=== PATIENT | male | born 1950 | race African-American/Black ===

== ENCOUNTER → 2017-12-25 | Outpatient (CLI) | payer MEDICARE ==
[~2017-12-25] MED LIST: ASPI-1159 PO; CARDURA; DOXA2TAB2 PO; FURO40TA5 PO; HYDR-4134 PO; INSU3INS8 SUBCUT; INSULIN; NEBI5TAB3 PO; NIFE30TA94 PO; NIFE90TA34 PO; PROCARDIA; SIMV20TA6 PO; VALS160T2 PO
== END | disposition home or self-care (01) ==
LOC: RAD 10:33
PROVIDERS: ATTEND Specialist
DX: Z01.818 Encounter for other preprocedural examination (principal); J84.9 Interstitial pulmonary disease, unspecified; I12.9 Hypertensive chronic kidney disease with stage 1 through stage 4 chronic kidney disease, or unspecified chronic kidney disease; E11.22 Type 2 diabetes mellitus with diabetic chronic kidney disease; N18.9 Chronic kidney disease, unspecified; E78.00 Pure hypercholesterolemia, unspecified; Z87.891 Personal history of nicotine dependence
CPT/HCPCS: 71045

== ENCOUNTER 2018-01-07 01:02 | Emergency (ER) | payer MEDICARE ==
[~2018-01-07] VITALS: Ht 180.3 cm; Wt 107.0 kg
[~2018-01-07 01:02] MED LIST changes: -CARDURA; -INSULIN; -NIFE30TA94 PO; -PROCARDIA
[2018-01-07 01:04] VITALS: BP 202/100
== END 2018-01-07 01:30 | disposition left against medical advice (07) ==
LOC: ER 01:02
DX: Z53.21 Procedure and treatment not carried out due to patient leaving prior to being seen by health care provider (principal); I10 Essential (primary) hypertension; E11.9 Type 2 diabetes mellitus without complications

== ENCOUNTER 2018-11-29 06:21 | Emergency (ER) | payer MEDICARE, MEDICAID, OTHER ==
[~2018-11-29] VITALS: Ht 180.3 cm; Wt 104.0 kg
[2018-11-29] MEDS ORDERED: DEXAMETHASONE 4MG TABLET PO ONE (08:15)
[2018-11-29 09:05] VITALS: BP 157/69
== END 2018-11-29 09:46 | disposition home or self-care (01) ==
LOC: ER 09:41
DX: T78.3XXA Angioneurotic edema, initial encounter (principal); X58.XXXA Exposure to other specified factors, initial encounter; E11.9 Type 2 diabetes mellitus without complications; I10 Essential (primary) hypertension; Z98.890 Other specified postprocedural states; Z79.82 Long term (current) use of aspirin; Z79.4 Long term (current) use of insulin; Z79.899 Other long term (current) drug therapy
CPT/HCPCS: 99283; J8540

== ENCOUNTER → 2020-09-19 | Outpatient (CLI) | payer MEDICARE, OTHER ==
[~2020-09-19] MED LIST changes: +AMLO10TA80 PO; -ASPI-1159 PO; +ASPI-1497 PO; +CLON0.1T PO; +CLON0.2T PO; +HYDR100T26 PO; +ISOS60TA4 PO; +LEVE500T19 PO; +LINA145C PO; +LINA72CA PO; +LOSA100T32 PO; -NIFE90TA34 PO; +NIFE90TA60 PO; +SIMV-43 PO; -SIMV20TA6 PO; -VALS160T2 PO
== END | disposition home or self-care (01) ==
LOC: LAB 12:44
PROVIDERS: ATTEND Surgery Vascular Surgery
DX: Z20.828 Contact with and (suspected) exposure to other viral communicable diseases (principal)
CPT/HCPCS: C9803; U0003

== ENCOUNTER 2020-09-22 10:01 | Day surgery (SDC) | payer MEDICARE, OTHER ==
[~2020-09-22] VITALS: Ht 180.3 cm; Wt 86.2 kg
[~2020-09-22 10:01] MED LIST changes: -HYDR-4134 PO; +SODIUM CHLORIDE 0.9% 500 ML IV NR
[2020-09-22 10:58] LABS: BASOPHILS % 1.1 % (0.0-2.0); EOSINOPHILS % 6.2 % (0.0-5.0); HEMATOCRIT. 36.4 % (42.0-52.0); LYMPHOCYTES % 28.8 % (20.0-50.0); MEAN CORPUSCULAR HEMOGLOBIN 32.1 pg (28.0-32.0); MEAN CORPUSCULAR VOLUME 97.7 fL (80.0-94.0); MEAN PLATELET VOLUME 7.9 fl (7.4-10.4); MONOCYTES % 7.9 % (2.0-8.0); PLATELET 215 x1000/uL (130-400); RED BLOOD CELL COUNT 3.73 mill/uL (4.7-6.1); RED CELL DISTRIBUTION WIDTH 16.9 % (11.6-14.6)
[2020-09-22 11:09] LABS: PARTIAL THROMBOPLASTIN TIME 29.6 sec (23.4-31.0); PROTHROMBIN TIME 10.5 sec (9.6-11.0)
[2020-09-22] MEDS ORDERED: LIDOCAINE HCL 1% 20ML VIAL (Pyxis) INJ ONE (11:19)
[2020-09-22] MEDS ORDERED: BACITRACIN 15GM TUBE TOP ONE (11:19)
[2020-09-22] MEDS ORDERED: THROMBIN (BOVINE) 5000 UNITS/VIAL TOP ONE (11:20)
[2020-09-22] MEDS ORDERED: HEPARIN SODIUM 1,000 UNIT/1ML VIAL IV ONE ×2 (11:20→15:15)
[2020-09-22] MEDS ORDERED: BUPIVACAINE HCL/PF 0.5% (5MG/ML) 10ML ONE (11:21)
[2020-09-22] MEDS ORDERED: BACITRACIN 50,000 UNITS/VIAL ONE (11:21)
[2020-09-22] MEDS ORDERED: SODIUM CHLORIDE 0.9% 1,000 ML ONE (11:21)
[2020-09-22] MEDS ORDERED: FENTANYL CITRATE/PF 50MCG/ML 2ML VIAL ONE (11:48)
[2020-09-22] MEDS ORDERED: MIDAZOLAM HCL 2 MG/2 ML VIAL ONE (11:48)
[2020-09-22] MEDS ORDERED: PROPOFOL 200MG/20ML VIAL IV ONE (11:49)
[2020-09-22] MEDS ORDERED: LIDOCAINE HCL/PF 1% 10 MG/ML 5ML VIAL ONE (11:49)
[2020-09-22] MEDS ORDERED: CLINDAMYCIN 900 MG PREMIX 50 ML IV ONE (11:55)
[2020-09-22] MEDS ORDERED: MEPERIDINE HCL/PF 25MG/ML CPJ IV PRN (13:15)
[2020-09-22] MEDS ORDERED: FENTANYL CITRATE/PF 50MCG/ML 2ML VIAL IV PRN (13:15)
== END 2020-09-22 16:30 | disposition home or self-care (01) ==
LOC: OR 10:01
PROVIDERS: ATTEND Surgery Vascular Surgery
DX: I12.0 Hypertensive chronic kidney disease with stage 5 chronic kidney disease or end stage renal disease (principal); E11.22 Type 2 diabetes mellitus with diabetic chronic kidney disease; N18.6 End stage renal disease; E78.00 Pure hypercholesterolemia, unspecified; I25.10 Atherosclerotic heart disease of native coronary artery without angina pectoris; Z79.899 Other long term (current) drug therapy; Z98.890 Other specified postprocedural states; Z88.2 Allergy status to sulfonamides; Z82.49 Family history of ischemic heart disease and other diseases of the circulatory system; Z83.3 Family history of diabetes mellitus
CPT/HCPCS: 36415; 36830; 80048; 82962; 85025; 85610; 85730; C1768; J1644; J2250; J2704; J3010; J3490; J7030; J7040

== ENCOUNTER 2020-10-04 17:04 | Inpatient (IN) | payer MEDICARE, OTHER ==
[~2020-10-04] VITALS: Ht 180.3 cm; Wt 82.6 kg
[~2020-10-04 17:04] MED LIST changes: -ASPI-1497 PO; -CLON0.2T PO; -FURO40TA5 PO; -INSU3INS8 SUBCUT; -ISOS60TA4 PO; -LINA72CA PO; -NIFE90TA60 PO; -SIMV-43 PO; -SODIUM CHLORIDE 0.9% 500 ML IV NR
[2020-10-04 18:17] LABS: BASOPHILS % 0.3 % (0.0-2.0); EOSINOPHILS % 7.5 % (0.0-5.0); HEMATOCRIT. 41.3 % (42.0-52.0); HEMOGLOBIN. 13.3 g/dL (14.0-18.0); LYMPHOCYTES % 11.6 % (20.0-50.0); MEAN CORPUSCULAR HEMOGLOBIN 31.7 pg (28.0-32.0); MEAN CORPUSCULAR VOLUME 98.3 fL (80.0-94.0); MONOCYTES % 9.1 % (2.0-8.0); NEUTROPHILS % 71.5 % (40.0-76.0); PLATELET 153 x1000/uL (130-400); RED CELL DISTRIBUTION WIDTH 15.9 % (11.6-14.6)
[2020-10-04 18:21] LABS: CHLORIDE 100 mEq/L (98-107)
[2020-10-04 18:24] LABS: PROTHROMBIN TIME 10.9 sec (9.6-11.0)
[2020-10-04 18:28] LABS: ETHANOL BLOOD < 10 mg/dL
[2020-10-04] MEDS ORDERED: DEXTROSE 50% WATER 50ML SYRINGE IV ONE (21:15)
[2020-10-04 21:35] LABS: CLARITY URINE CLEAR (CLEAR); COLOR URINE DARK YELLOW (YELLOW); KETONES URINE TRACE (NEGATIVE); LEUKOCYTE ESTERASE URINE TRACE (NEGATIVE); NITRITE URINE NEGATIVE (NEGATIVE); OCCULT BLOOD URINE TRACE (NEGATIVE); PROTEIN URINE 3+ (NEGATIVE); SPECIFIC GRAVITY URINE 1.021 (1.005-1.030); UROBILINOGEN URINE 0.2 E.U./dL (0.2-1.0)
[2020-10-04 21:54] LABS: *BARBITURATES SCREEN URINE NEGATIVE (NEGATIVE)
[2020-10-04 21:55] LABS: *AMPHETAMINES SCREEN URINE NEGATIVE (NEGATIVE); *BENZODIAZEPINES SCREEN URINE NEGATIVE (NEGATIVE); *COCAINE SCREEN URINE PRESUMTIVE POSITIVE (NEGATIVE); CANNABINOID URINE SCREEN NEGATIVE (NEGATIVE); METHADONE URINE SCREEN NEGATIVE (NEGATIVE); OPIATES URINE SCREEN PRESUMTIVE POSITIVE (NEGATIVE); PHENCYCLIDINE URINE SCREEN NEGATIVE (NEGATIVE)
[2020-10-04 23:30] VITALS: BP 162/71
[2020-10-05] MEDS ORDERED: CLONIDINE 0.1MG TABLET PO PRN (00:45)
[2020-10-05] MEDS ORDERED: ACETAMINOPHEN 325MG TABLET PO PRN (00:45)
[2020-10-05] MEDS ORDERED: MAGNESIUM/ALUMINUM HYDROXIDE/SIMETHICONE 30ML UDC PO PRN (00:45)
[2020-10-05] MEDS ORDERED: DIPHENHYDRAMINE 50MG/ML VIAL IV PRN (00:45)
[2020-10-05] MEDS ORDERED: GUAIFENESIN 200MG/10ML SUGAR FREE UDC PO PRN (00:45)
[2020-10-05] MEDS ORDERED: ONDANSETRON HCL 4MG/2ML INJ IV PRN (00:45)
[2020-10-05] MEDS ORDERED: DOCUSATE SODIUM 100MG CAPSULE PO PRN (00:45)
[2020-10-05] MEDS ORDERED: AMLODIPINE 10MG TABLET PO SCH (01:00)
[2020-10-05] MEDS ORDERED: LEVOFLOXACIN 500MG PREMIX 100 ML IV NR (02:00)
[2020-10-05 04:00] VITALS: BP 149/79
[2020-10-05] MEDS ORDERED: DEXTROSE 50% WATER 50ML SYRINGE IV PRN ×2 (06:15)
[2020-10-05] MEDS: BLOOD SUGAR DIAGNOSTIC STRIP TEST SCH ×4 (06:42→21:12)
[2020-10-05] MEDS: INSULIN LISPRO 100 UNITS/ML SUBCUT SCH ×4 (07:12→21:12)
[2020-10-05 07:48] VITALS: BP 127/58
[2020-10-05] MEDS: AMLODIPINE 10MG TABLET PO SCH (09:24)
[2020-10-05] MEDS: ENOXAPARIN 30MG/0.3ML SYR SUBCUT SCH (09:26)
[2020-10-05] MEDS ORDERED: ACETAMINOPHEN 325MG TABLET PO NR (10:30)
[2020-10-05] MEDS: LEVETIRACETAM 500MG TABLET PO SCH (11:45)
[2020-10-05] MEDS: DOXAZOSIN MESYLATE 2MG TABLET PO SCH (11:46)
[2020-10-05] MEDS: LOSARTAN POTASSIUM 100 MG TABLET PO SCH (11:46)
[2020-10-05 12:00] VITALS: BP 171/76
[2020-10-05 12:57] VITALS: BP 137/87
[2020-10-05] MEDS: HYDRALAZINE HCL 100MG TABLET PO SCH ×2 (15:11→21:10)
[2020-10-05 16:00] VITALS: BP 121/58
[2020-10-05 20:00] VITALS: BP 130/64
[2020-10-06] VITALS (7 sets, daily range): BP systolic 101–134; BP diastolic 54–67
[2020-10-06] MEDS: BLOOD SUGAR DIAGNOSTIC STRIP TEST SCH ×3 (06:29→17:51)
[2020-10-06] MEDS: INSULIN LISPRO 100 UNITS/ML SUBCUT SCH ×3 (06:29→17:54)
[2020-10-06 06:35] LABS: BASOPHILS % 0.7 % (0.0-2.0); EOSINOPHILS % 8.6 % (0.0-5.0); HEMATOCRIT. 38.2 % (42.0-52.0); HEMOGLOBIN. 12.6 g/dL (14.0-18.0); LYMPHOCYTES % 19.8 % (20.0-50.0); MEAN CORPUSCULAR HEMOGLOBIN 32.2 pg (28.0-32.0); MEAN CORPUSCULAR VOLUME 97.2 fL (80.0-94.0); MEAN PLATELET VOLUME 9.4 fl (7.4-10.4); MONOCYTES % 10.5 % (2.0-8.0); NEUTROPHILS % 60.4 % (40.0-76.0); PLATELET 137 x1000/uL (130-400); RED BLOOD CELL COUNT 3.93 mill/uL (4.7-6.1)
[2020-10-06 06:45] LABS: CHLORIDE 102 mEq/L (98-107)
[2020-10-06] MEDS: DOXAZOSIN MESYLATE 2MG TABLET PO SCH (08:20)
[2020-10-06] MEDS: LEVETIRACETAM 500MG TABLET PO SCH (08:20)
[2020-10-06] MEDS: HYDRALAZINE HCL 100MG TABLET PO SCH ×3 (08:22→17:51)
[2020-10-06] MEDS: LOSARTAN POTASSIUM 100 MG TABLET PO SCH (08:22)
[2020-10-06] MEDS: ENOXAPARIN 30MG/0.3ML SYR SUBCUT SCH (08:22)
[2020-10-06] MEDS: AMLODIPINE 10MG TABLET PO SCH (08:23)
[2020-10-07] MEDS ORDERED: LEVOFLOXACIN 250MG PREMIX 50 ML IV SCH (09:00)
== END 2020-10-06 19:50 | DRG 70 ==
LOC: ER 17:04 → 8WST 21:16 → EDBEDREQ 21:18 → EDBEDREQTM 21:18 → EDBEDREQSVC 21:18 → ENRESERV 21:44
PROVIDERS: ADMIT Hospitalist; ATTEND Hospitalist
PROC: 5A1D70Z Performance of Urinary Filtration, Intermittent, Less than 6 Hours Per Day (ICD-10-PCS; principal; 2020-10-04)
DX: G93.41 Metabolic encephalopathy (principal); I50.33 Acute on chronic diastolic (congestive) heart failure; N18.6 End stage renal disease; I13.2 Hypertensive heart and chronic kidney disease with heart failure and with stage 5 chronic kidney disease, or end stage renal disease; E11.649 Type 2 diabetes mellitus with hypoglycemia without coma; E11.22 Type 2 diabetes mellitus with diabetic chronic kidney disease; F19.10 Other psychoactive substance abuse, uncomplicated; F17.210 Nicotine dependence, cigarettes, uncomplicated; Z88.0 Allergy status to penicillin; Z79.899 Other long term (current) drug therapy; Z99.2 Dependence on renal dialysis
CPT/HCPCS: 36415; 71045; 80053; 80305; 80320; 81003; 82962; 83036; 84484; 85025; 93005; 93970; 96374; 97116; 97162; 97166; 97535; 99285; J1650; J1815; J1956; G0480

== ENCOUNTER 2020-10-16 13:39 | Inpatient (IN) | payer MEDICARE, OTHER ==
[~2020-10-16] VITALS: Ht 182.9 cm; Wt 94.3 kg
[2020-10-16] MEDS ORDERED: SODIUM CHLORIDE 0.9% 1000ML BAG (SEPSIS BOLUS) IV ONE (14:45)
[2020-10-16 15:18] LABS: BG BASE EXCESS -0.5 mmol/L (-2.0-2.0); BG CARBOXYHEMOGLOBIN 0.5 % (0.5-1.5); BG DEOXYHEMOGLOBIN 8.9 % (0.0-5.0); BG FRACTION INSPIRED OXYGEN 28; BG HCO3 ACT 24.9 mmol/L (22.0-26.0); BG METHEMOGLOBIN 0.3 % (0.0-1.5); BG OXYHEMOGLOBIN 90.3 % (94.0-97.0); BG PCO2 43.6 mmHg (35.0-45.0); BG PH 7.374 (7.350-7.450); BG PO2 66.6 mmHg (75.0-100.0); BG SAMPLE SITE RIGHT BRACHIAL; BG TOTAL HEMOGLOBIN 12.4 g/dL (12.0-18.0); BG VENT MODE NASAL CANNULA
[2020-10-16 15:41] LABS: BASOPHILS % 0.4 % (0.0-2.0); EOSINOPHILS % 0.5 % (0.0-5.0); HEMATOCRIT. 37.9 % (42.0-52.0); HEMOGLOBIN. 12.4 g/dL (14.0-18.0); LYMPHOCYTES % 10.4 % (20.0-50.0); MEAN CORPUSCULAR HEMOGLOBIN 31.4 pg (28.0-32.0); MEAN CORPUSCULAR VOLUME 96.1 fL (80.0-94.0); MONOCYTES % 8.7 % (2.0-8.0); PLATELET 141 x1000/uL (130-400); RED BLOOD CELL COUNT 3.95 mill/uL (4.7-6.1); RED CELL DISTRIBUTION WIDTH 15.8 % (11.6-14.6)
[2020-10-16 15:44] LABS: CHLORIDE 95 mEq/L (98-107)
[2020-10-16 15:48] LABS: ETHANOL BLOOD < 10 mg/dL
[2020-10-16 16:02] LABS: INR 1.1; PROTHROMBIN TIME 11.2 sec (9.6-11.0)
[2020-10-16] MEDS ORDERED: SODIUM POLYSTYRENE SULFONATE 15 G/60 ML BOT PO NR (17:45)
[2020-10-16] MEDS ORDERED: INSULIN REGULAR (HUMULIN R) 300UNITS/3ML VIAL IV ONE (17:45)
[2020-10-16] MEDS ORDERED: DEXTROSE 50% WATER 50ML SYRINGE IV ONE (17:45)
[2020-10-16] MEDS ORDERED: CALCIUM GLUCONATE 100MG/ML 10ML VIAL IV NR (17:45)
[2020-10-16] MEDS ORDERED: DEXTROSE 50% WATER 50ML SYRINGE IV NR (21:00)
[2020-10-16 22:00] VITALS: BP 153/75
[2020-10-16] MEDS ORDERED: ATOR40TA70 PO (23:27)
[2020-10-16] MEDS ORDERED: TRAZ-251 PO (23:27)
[2020-10-16] MEDS ORDERED: CLONIDINE 0.1MG TABLET PO PRN (23:45)
[2020-10-17] VITALS: BP 153/78
[2020-10-17] MEDS: ACETAMINOPHEN 325MG TABLET PO PRN ×3 (00:28→21:41)
[2020-10-17] MEDS ORDERED: LEVOFLOXACIN 500MG PREMIX 100 ML IV NR (01:00)
[2020-10-17] MEDS ORDERED: VANCOMYCIN 1500MG in DEXTROSE 5% WATER 250ML IV SCH (02:00)
[2020-10-17] MEDS: TRAZODONE HCL 50MG TABLET PO SCH ×2 (02:28→21:41)
[2020-10-17 04:00] VITALS: BP 140/65
[2020-10-17] MEDS: DEXTROSE 50% WATER 50ML SYRINGE IV PRN (05:32)
[2020-10-17 05:53] LABS: BASOPHILS % 0.4 % (0.0-2.0); HEMATOCRIT. 36.4 % (42.0-52.0); MEAN CORPUSCULAR HEMOGLOBIN 31.8 pg (28.0-32.0); MEAN CORPUSCULAR VOLUME 96.9 fL (80.0-94.0); MEAN PLATELET VOLUME 9.1 fl (7.4-10.4); MONOCYTES % 8.5 % (2.0-8.0); NEUTROPHILS % 78.1 % (40.0-76.0); PLATELET 144 x1000/uL (130-400); RED BLOOD CELL COUNT 3.76 mill/uL (4.7-6.1); RED CELL DISTRIBUTION WIDTH 15.5 % (11.6-14.6)
[2020-10-17] MEDS: INSULIN LISPRO 100 UNITS/ML SUBCUT SCH ×4 (06:29→21:00)
[2020-10-17] MEDS: BLOOD SUGAR DIAGNOSTIC STRIP TEST SCH ×4 (06:29→21:36)
[2020-10-17 08:00] VITALS: BP 142/71
[2020-10-17 08:59] LABS: PHOSPHORUS 8.8 mg/dL (2.5-4.9)
[2020-10-17] MEDS ORDERED: PIPERACILLIN/TAZOBACTAM 3.375 G in DEXT 5% WATER 100 ML IV SCH (09:00)
[2020-10-17] MEDS ORDERED: DEXT 10% WATER 1,000 ML IV SCH (09:00)
[2020-10-17] MEDS: LEVETIRACETAM 500MG TABLET PO SCH ×2 (10:26→16:45)
[2020-10-17] MEDS: DEXT 10% WATER 1,000 ML IV SCH (11:16)
[2020-10-17 12:00] VITALS: BP 144/72
[2020-10-17] MEDS: ENOXAPARIN 30MG/0.3ML SYR SUBCUT SCH (15:13)
[2020-10-17] MEDS: AMLODIPINE 10MG TABLET PO SCH (15:49)
[2020-10-17] MEDS: HYDRALAZINE HCL 100MG TABLET PO SCH ×2 (15:50→16:29)
[2020-10-17] MEDS: DOXAZOSIN MESYLATE 2MG TABLET PO SCH (15:50)
[2020-10-17] MEDS: SEVELAMER CARBONATE 800 MG TABLET PO SCH (16:44)
[2020-10-17] MEDS ORDERED: ALBUTEROL 6.7GM HFA INHALER ORI PRN (18:00)
[2020-10-17 20:00] VITALS: BP 147/63
[2020-10-17] MEDS ORDERED: VANCOMYCIN 750 MG PREMIX 150 ML IV NR (20:00)
[2020-10-17] MEDS: ATORVASTATIN CALCIUM 40MG TABLET PO SCH (21:41)
[2020-10-17 21:44] LABS: T4 FREE 1.12 ng/dL (0.76-1.46)
[2020-10-17 22:07] LABS: FOLIC ACID (FOLATE) SERUM 9.1 ng/mL (>5.38)
[2020-10-18] VITALS: BP 100/61
[2020-10-18] MEDS: ACETAMINOPHEN 325MG TABLET PO PRN (03:44)
[2020-10-18 04:00] VITALS: BP 129/54
[2020-10-18] MEDS: BLOOD SUGAR DIAGNOSTIC STRIP TEST SCH ×4 (06:40→20:43)
[2020-10-18 08:00] VITALS: BP 117/59
[2020-10-18] MEDS: INSULIN LISPRO 100 UNITS/ML SUBCUT SCH ×4 (08:10→21:32)
[2020-10-18] MEDS: LEVETIRACETAM 500MG TABLET PO SCH ×2 (09:01→18:55)
[2020-10-18] MEDS: AMLODIPINE 10MG TABLET PO SCH (09:01)
[2020-10-18] MEDS: DOXAZOSIN MESYLATE 2MG TABLET PO SCH (09:01)
[2020-10-18] MEDS: HYDRALAZINE HCL 100MG TABLET PO SCH ×3 (09:02→18:55)
[2020-10-18] MEDS: SEVELAMER CARBONATE 800 MG TABLET PO SCH ×3 (09:02→18:55)
[2020-10-18] MEDS: ENOXAPARIN 30MG/0.3ML SYR SUBCUT SCH (09:03)
[2020-10-18 12:00] VITALS: BP 100/64
[2020-10-18 15:22] LABS: CLARITY URINE CLEAR (CLEAR); COLOR URINE YELLOW (YELLOW); KETONES URINE NEGATIVE (NEGATIVE); LEUKOCYTE ESTERASE URINE NEGATIVE (NEGATIVE); NITRITE URINE NEGATIVE (NEGATIVE); OCCULT BLOOD URINE NEGATIVE (NEGATIVE); PH URINE >=9.0 (4.5-8.0); PROTEIN URINE NEGATIVE (NEGATIVE); SPECIFIC GRAVITY URINE 1.007 (1.005-1.030); UROBILINOGEN URINE 0.2 E.U./dL (0.2-1.0)
[2020-10-18 16:00] VITALS: BP 136/67
[2020-10-18] MEDS: DEXT 10% WATER 1,000 ML IV SCH (16:06)
[2020-10-18 20:00] VITALS: BP 122/70
[2020-10-18] MEDS: ATORVASTATIN CALCIUM 40MG TABLET PO SCH (21:31)
[2020-10-18] MEDS: TRAZODONE HCL 50MG TABLET PO SCH (21:31)
[2020-10-19] VITALS: BP 114/58
[2020-10-19] MEDS: DEXAMETHASONE 10 MG/ML VIAL IV SCH ×2 (00:33→08:01)
[2020-10-19] MEDS: ACETAMINOPHEN 325MG TABLET PO PRN ×3 (00:52→22:33)
[2020-10-19 04:00] VITALS: BP 133/62
[2020-10-19] MEDS: BLOOD SUGAR DIAGNOSTIC STRIP TEST SCH ×4 (06:42→21:28)
[2020-10-19] MEDS: INSULIN LISPRO 100 UNITS/ML SUBCUT SCH ×4 (07:55→21:00)
[2020-10-19] MEDS: SEVELAMER CARBONATE 800 MG TABLET PO SCH ×3 (07:56→18:36)
[2020-10-19 08:00] VITALS: BP 119/67
[2020-10-19] MEDS: ENOXAPARIN 30MG/0.3ML SYR SUBCUT SCH (08:01)
[2020-10-19] MEDS: LEVETIRACETAM 500MG TABLET PO SCH ×2 (08:01→18:35)
[2020-10-19] MEDS: DOXAZOSIN MESYLATE 2MG TABLET PO SCH (08:01)
[2020-10-19] MEDS: HYDRALAZINE HCL 100MG TABLET PO SCH ×3 (08:02→18:35)
[2020-10-19 12:00] VITALS: BP 116/64
[2020-10-19] MEDS: LEVOFLOXACIN 250MG PREMIX 50 ML IV SCH (13:03)
[2020-10-19 13:38] LABS: HEMATOCRIT. 33.3 % (42.0-52.0); MEAN CORPUSCULAR HEMOGLOBIN 31.5 pg (28.0-32.0); MEAN CORPUSCULAR VOLUME 95.2 fL (80.0-94.0); MEAN PLATELET VOLUME 8.9 fl (7.4-10.4); PLATELET 130 x1000/uL (130-400); RED CELL DISTRIBUTION WIDTH 15.8 % (11.6-14.6)
[2020-10-19 14:07] LABS: PLATELET ESTIMATE NORMAL
[2020-10-19 16:00] VITALS: BP 104/52
[2020-10-19 20:00] VITALS: BP 112/57
[2020-10-19] MEDS ORDERED: VANCOMYCIN 750 MG PREMIX 150 ML IV SCH (20:00)
[2020-10-19] MEDS ORDERED: LEVOFLOXACIN 250MG PREMIX 50 ML IV SCH (21:00)
[2020-10-19] MEDS: DEXTROSE 50% WATER 50ML SYRINGE IV PRN (21:28)
[2020-10-19] MEDS: ATORVASTATIN CALCIUM 40MG TABLET PO SCH (22:33)
[2020-10-19] MEDS: TRAZODONE HCL 50MG TABLET PO SCH (22:33)
[2020-10-20] VITALS: BP 118/87
[2020-10-20 04:00] VITALS: BP 130/66
[2020-10-20 05:58] LABS: HEMATOCRIT. 37.4 % (42.0-52.0); HEMOGLOBIN. 12.4 g/dL (14.0-18.0); MEAN CORPUSCULAR HEMOGLOBIN 31.7 pg (28.0-32.0); MEAN CORPUSCULAR VOLUME 95.7 fL (80.0-94.0); MEAN PLATELET VOLUME 9.8 fl (7.4-10.4); PLATELET 146 x1000/uL (130-400); RED CELL DISTRIBUTION WIDTH 15.8 % (11.6-14.6)
[2020-10-20] MEDS: BLOOD SUGAR DIAGNOSTIC STRIP TEST SCH ×4 (06:45→21:31)
[2020-10-20 08:00] VITALS: BP 103/64
[2020-10-20] MEDS: INSULIN LISPRO 100 UNITS/ML SUBCUT SCH ×4 (08:10→21:00)
[2020-10-20] MEDS: SEVELAMER CARBONATE 800 MG TABLET PO SCH ×3 (08:10→16:48)
[2020-10-20] MEDS: DOXAZOSIN MESYLATE 2MG TABLET PO SCH (09:00)
[2020-10-20] MEDS: HYDRALAZINE HCL 100MG TABLET PO SCH ×3 (09:00→16:48)
[2020-10-20] MEDS: ENOXAPARIN 30MG/0.3ML SYR SUBCUT SCH (09:16)
[2020-10-20] MEDS: DEXAMETHASONE 10 MG/ML VIAL IV SCH (09:17)
[2020-10-20] MEDS: LEVETIRACETAM 500MG TABLET PO SCH ×2 (09:17→16:48)
[2020-10-20] MEDS: ACETAMINOPHEN 325MG TABLET PO PRN ×2 (09:21→15:47)
[2020-10-20 12:00] VITALS: BP 116/61
[2020-10-20 12:36] LABS: PLATELET ESTIMATE NORMAL
[2020-10-20 16:00] VITALS: BP 118/70
[2020-10-20 20:00] VITALS: BP 171/72
[2020-10-20] MEDS: TRAZODONE HCL 50MG TABLET PO SCH (21:32)
[2020-10-20] MEDS: ATORVASTATIN CALCIUM 40MG TABLET PO SCH (21:32)
[2020-10-21] VITALS (12 sets, daily range): BP systolic 105–135; BP diastolic 55–94
[2020-10-21] MEDS: ACETAMINOPHEN 325MG TABLET PO PRN ×2 (02:02→16:40)
[2020-10-21 06:30] LABS: HEMATOCRIT. 37.6 % (42.0-52.0); HEMOGLOBIN. 12.4 g/dL (14.0-18.0); MEAN CORPUSCULAR HEMOGLOBIN 31.6 pg (28.0-32.0); MEAN CORPUSCULAR VOLUME 95.7 fL (80.0-94.0); MEAN PLATELET VOLUME 9.9 fl (7.4-10.4); PLATELET 139 x1000/uL (130-400); RED BLOOD CELL COUNT 3.93 mill/uL (4.7-6.1); RED CELL DISTRIBUTION WIDTH 15.9 % (11.6-14.6)
[2020-10-21] MEDS: BLOOD SUGAR DIAGNOSTIC STRIP TEST SCH ×4 (06:38→20:33)
[2020-10-21] MEDS: INSULIN LISPRO 100 UNITS/ML SUBCUT SCH ×4 (08:03→20:53)
[2020-10-21] MEDS: ENOXAPARIN 30MG/0.3ML SYR SUBCUT SCH (08:28)
[2020-10-21] MEDS: SEVELAMER CARBONATE 800 MG TABLET PO SCH ×3 (08:28→19:14)
[2020-10-21] MEDS: DEXAMETHASONE 10 MG/ML VIAL IV SCH (08:29)
[2020-10-21] MEDS: LEVETIRACETAM 500MG TABLET PO SCH ×2 (08:29→17:17)
[2020-10-21] MEDS: DOXAZOSIN MESYLATE 2MG TABLET PO SCH (09:00)
[2020-10-21] MEDS: HYDRALAZINE HCL 100MG TABLET PO SCH ×3 (09:00→17:00)
[2020-10-21 12:50] LABS: PLATELET ESTIMATE NORMAL
[2020-10-21] MEDS ORDERED: TUBERCULIN,PURIF.PROT.DERIV. 5 TU/0.1 ML SYR ID ONE (16:00)
[2020-10-21] MEDS: LEVOFLOXACIN 250MG PREMIX 50 ML IV SCH (16:40)
[2020-10-21] MEDS: DEXTROSE 50% WATER 50ML SYRINGE IV PRN (17:29)
[2020-10-21] MEDS: TRAZODONE HCL 50MG TABLET PO SCH (20:33)
[2020-10-21] MEDS: ATORVASTATIN CALCIUM 40MG TABLET PO SCH (20:33)
[2020-10-22] VITALS: BP 133/64
[2020-10-22 04:00] VITALS: BP 113/56
[2020-10-22] MEDS: BLOOD SUGAR DIAGNOSTIC STRIP TEST SCH ×4 (07:01→21:00)
[2020-10-22 08:00] VITALS: BP 96/45
[2020-10-22] MEDS: INSULIN LISPRO 100 UNITS/ML SUBCUT SCH ×4 (08:10→22:35)
[2020-10-22] MEDS: HYDRALAZINE HCL 100MG TABLET PO SCH ×3 (09:00→17:33)
[2020-10-22] MEDS: DOXAZOSIN MESYLATE 2MG TABLET PO SCH (09:00)
[2020-10-22] MEDS: ENOXAPARIN 30MG/0.3ML SYR SUBCUT SCH (10:14)
[2020-10-22] MEDS: LEVETIRACETAM 500MG TABLET PO SCH ×2 (10:15→17:32)
[2020-10-22] MEDS: SEVELAMER CARBONATE 800 MG TABLET PO SCH ×3 (10:15→17:32)
[2020-10-22] MEDS: DEXAMETHASONE 10 MG/ML VIAL IV SCH (10:15)
[2020-10-22 12:00] VITALS: BP 109/54
[2020-10-22 12:59] LABS: HEPATITIS B SURFACE ANTIGEN NEGATIVE
[2020-10-22 13:29] LABS: HEPATITIS A AB IGM NEGATIVE (NEGATIVE)
[2020-10-22 16:00] VITALS: BP 118/69
[2020-10-22 20:00] VITALS: BP 109/67
[2020-10-22] MEDS: ATORVASTATIN CALCIUM 40MG TABLET PO SCH (22:16)
[2020-10-22] MEDS: TRAZODONE HCL 50MG TABLET PO SCH (22:16)
[2020-10-23] VITALS: BP 118/61
[2020-10-23 04:00] VITALS: BP 110/60
[2020-10-23 08:00] VITALS: BP 124/63
[2020-10-23] MEDS: BLOOD SUGAR DIAGNOSTIC STRIP TEST SCH ×4 (08:05→21:36)
[2020-10-23] MEDS: SEVELAMER CARBONATE 800 MG TABLET PO SCH ×3 (08:42→17:10)
[2020-10-23] MEDS: FOLIC ACID/VITAMIN B COMP W-C TABLET PO SCH (08:42)
[2020-10-23] MEDS: DOXAZOSIN MESYLATE 2MG TABLET PO SCH (08:42)
[2020-10-23] MEDS: HYDRALAZINE HCL 100MG TABLET PO SCH ×3 (08:42→16:57)
[2020-10-23] MEDS: LEVETIRACETAM 500MG TABLET PO SCH ×2 (08:42→17:10)
[2020-10-23] MEDS: DEXAMETHASONE 10 MG/ML VIAL IV SCH (08:43)
[2020-10-23] MEDS: ENOXAPARIN 30MG/0.3ML SYR SUBCUT SCH (08:43)
[2020-10-23] MEDS: INSULIN LISPRO 100 UNITS/ML SUBCUT SCH ×4 (08:56→21:00)
[2020-10-23 12:00] VITALS: BP 118/60
[2020-10-23 16:00] VITALS: BP 102/55
[2020-10-23 20:00] VITALS: BP 158/64
[2020-10-23] MEDS: ATORVASTATIN CALCIUM 40MG TABLET PO SCH (21:37)
[2020-10-23] MEDS: TRAZODONE HCL 50MG TABLET PO SCH (21:37)
[2020-10-24] VITALS: BP 125/68
[2020-10-24 04:00] VITALS: BP 106/52
[2020-10-24] MEDS: ACETAMINOPHEN 325MG TABLET PO PRN ×2 (06:08→08:44)
[2020-10-24] MEDS: BLOOD SUGAR DIAGNOSTIC STRIP TEST SCH ×4 (07:45→20:51)
[2020-10-24] MEDS: INSULIN LISPRO 100 UNITS/ML SUBCUT SCH ×4 (08:10→21:00)
[2020-10-24 08:19] LABS: HEMOGLOBIN. 11.5 g/dL (14.0-18.0); MEAN CORPUSCULAR HEMOGLOBIN 31.5 pg (28.0-32.0); MEAN PLATELET VOLUME 10.5 fl (7.4-10.4); PLATELET 134 x1000/uL (130-400); RED BLOOD CELL COUNT 3.66 mill/uL (4.7-6.1); RED CELL DISTRIBUTION WIDTH 15.4 % (11.6-14.6)
[2020-10-24] MEDS: FOLIC ACID/VITAMIN B COMP W-C TABLET PO SCH (08:42)
[2020-10-24] MEDS: SEVELAMER CARBONATE 800 MG TABLET PO SCH ×3 (08:43→17:29)
[2020-10-24] MEDS: LEVETIRACETAM 500MG TABLET PO SCH ×2 (08:44→17:29)
[2020-10-24] MEDS: DEXAMETHASONE 10 MG/ML VIAL IV SCH (08:45)
[2020-10-24] MEDS: HYDRALAZINE HCL 100MG TABLET PO SCH ×4 (08:45→17:29)
[2020-10-24] MEDS: DOXAZOSIN MESYLATE 2MG TABLET PO SCH ×2 (08:46→08:49)
[2020-10-24] MEDS: ENOXAPARIN 30MG/0.3ML SYR SUBCUT SCH (08:47)
[2020-10-24 12:00] VITALS: BP 101/59
[2020-10-24 13:54] LABS: PLATELET ESTIMATE NORMAL
[2020-10-24 16:00] VITALS: BP 120/74
[2020-10-24 20:00] VITALS: BP 141/79
[2020-10-24] MEDS: TRAZODONE HCL 50MG TABLET PO SCH (20:59)
[2020-10-24] MEDS: ATORVASTATIN CALCIUM 40MG TABLET PO SCH (20:59)
[2020-10-25] VITALS: BP 133/72
[2020-10-25 04:00] VITALS: BP 139/67
[2020-10-25] MEDS: ACETAMINOPHEN 325MG TABLET PO PRN ×2 (05:13→17:11)
[2020-10-25] MEDS: BLOOD SUGAR DIAGNOSTIC STRIP TEST SCH ×4 (06:45→21:00)
[2020-10-25] MEDS: INSULIN LISPRO 100 UNITS/ML SUBCUT SCH ×4 (06:46→21:00)
[2020-10-25 08:00] VITALS: BP 137/97
[2020-10-25] MEDS: DEXAMETHASONE 10 MG/ML VIAL IV SCH (09:03)
[2020-10-25] MEDS: FOLIC ACID/VITAMIN B COMP W-C TABLET PO SCH (09:04)
[2020-10-25] MEDS: HYDRALAZINE HCL 100MG TABLET PO SCH ×3 (09:04→17:10)
[2020-10-25] MEDS: ENOXAPARIN 30MG/0.3ML SYR SUBCUT SCH (09:05)
[2020-10-25] MEDS: DOXAZOSIN MESYLATE 2MG TABLET PO SCH (09:05)
[2020-10-25] MEDS: SEVELAMER CARBONATE 800 MG TABLET PO SCH ×3 (09:05→17:10)
[2020-10-25] MEDS: LEVETIRACETAM 500MG TABLET PO SCH ×2 (09:05→17:10)
[2020-10-25 12:00] VITALS: BP 113/53
[2020-10-25 12:34] LABS: HEMATOCRIT. 35.3 % (42.0-52.0); HEMOGLOBIN. 11.8 g/dL (14.0-18.0); MEAN CORPUSCULAR HEMOGLOBIN 31.5 pg (28.0-32.0); MEAN CORPUSCULAR VOLUME 94.3 fL (80.0-94.0); MEAN PLATELET VOLUME 10.9 fl (7.4-10.4); PLATELET 146 x1000/uL (130-400); RED BLOOD CELL COUNT 3.75 mill/uL (4.7-6.1); RED CELL DISTRIBUTION WIDTH 15.6 % (11.6-14.6)
[2020-10-25 16:00] VITALS: BP 122/66
[2020-10-25 20:00] VITALS: BP 117/64
[2020-10-25] MEDS: ATORVASTATIN CALCIUM 40MG TABLET PO SCH (22:19)
[2020-10-25] MEDS: TRAZODONE HCL 50MG TABLET PO SCH (22:19)
[2020-10-25 22:56] LABS: PLATELET ESTIMATE NORMAL
[2020-10-26] VITALS: BP 123/74
[2020-10-26 04:00] VITALS: BP 121/62
[2020-10-26 07:42] LABS: HEMATOCRIT. 34.5 % (42.0-52.0); HEMOGLOBIN. 11.5 g/dL (14.0-18.0); MEAN CORPUSCULAR HEMOGLOBIN 31.6 pg (28.0-32.0); MEAN CORPUSCULAR VOLUME 94.8 fL (80.0-94.0); MEAN PLATELET VOLUME 10.7 fl (7.4-10.4); PLATELET 155 x1000/uL (130-400); RED BLOOD CELL COUNT 3.64 mill/uL (4.7-6.1); RED CELL DISTRIBUTION WIDTH 15.8 % (11.6-14.6)
[2020-10-26 08:00] VITALS: BP 117/66
[2020-10-26] MEDS: BLOOD SUGAR DIAGNOSTIC STRIP TEST SCH ×4 (08:29→21:09)
[2020-10-26] MEDS ORDERED: SODIUM BICARBONATE 8.4% 1 MEQ/ML 50ML SYR IV NR (09:00)
[2020-10-26] MEDS ORDERED: DEXTROSE 50% WATER 50ML SYRINGE IV NR (09:00)
[2020-10-26] MEDS ORDERED: SODIUM POLYSTYRENE SULFONATE 15 G/60 ML BOT PO NR (09:30)
[2020-10-26] MEDS ORDERED: INSULIN REGULAR (HUMULIN R) UD 100 UNITS/ML SYR IV NR (10:00)
[2020-10-26] MEDS: SEVELAMER CARBONATE 800 MG TABLET PO SCH ×2 (10:17→17:33)
[2020-10-26] MEDS: INSULIN LISPRO 100 UNITS/ML SUBCUT SCH ×4 (10:19→21:28)
[2020-10-26] MEDS: DEXAMETHASONE 10 MG/ML VIAL IV SCH (10:22)
[2020-10-26] MEDS: HYDRALAZINE HCL 100MG TABLET PO SCH ×3 (10:24→17:00)
[2020-10-26] MEDS: DOXAZOSIN MESYLATE 2MG TABLET PO SCH (10:24)
[2020-10-26] MEDS: ENOXAPARIN 30MG/0.3ML SYR SUBCUT SCH (10:25)
[2020-10-26] MEDS: LEVETIRACETAM 500MG TABLET PO SCH ×2 (10:25→17:33)
[2020-10-26] MEDS: FOLIC ACID/VITAMIN B COMP W-C TABLET PO SCH (10:25)
[2020-10-26 12:00] VITALS: BP 143/71
[2020-10-26 13:06] LABS: BARBITURATE SCREEN Negative ug/mL (Cutoff:0.1); BENZODIAZEPINE SCREEN Negative ng/mL (Cutoff:20); OPIATES SCREEN ++POSITIVE++ ng/mL (Cutoff:5); PHENCYCLIDINE SCREEN Negative ng/mL (Cutoff:8)
[2020-10-26 16:00] VITALS: BP 95/56
[2020-10-26 20:00] VITALS: BP 139/76
[2020-10-26 20:58] LABS: PLATELET ESTIMATE NORMAL
[2020-10-26] MEDS: TRAZODONE HCL 50MG TABLET PO SCH (21:27)
[2020-10-26] MEDS: ATORVASTATIN CALCIUM 40MG TABLET PO SCH (21:27)
[2020-10-27 00:18] VITALS: BP 120/66
[2020-10-27 04:00] VITALS: BP 154/76
[2020-10-27 07:29] LABS: HEMATOCRIT. 35.6 % (42.0-52.0); HEMOGLOBIN. 11.9 g/dL (14.0-18.0); MEAN CORPUSCULAR HEMOGLOBIN 31.4 pg (28.0-32.0); MEAN CORPUSCULAR VOLUME 93.5 fL (80.0-94.0); MEAN PLATELET VOLUME 10.9 fl (7.4-10.4); PLATELET 169 x1000/uL (130-400); RED BLOOD CELL COUNT 3.81 mill/uL (4.7-6.1); RED CELL DISTRIBUTION WIDTH 15.2 % (11.6-14.6)
[2020-10-27] MEDS: BLOOD SUGAR DIAGNOSTIC STRIP TEST SCH ×4 (07:40→21:27)
[2020-10-27 08:00] VITALS: BP 133/68
[2020-10-27] MEDS: INSULIN LISPRO 100 UNITS/ML SUBCUT SCH ×4 (08:10→21:00)
[2020-10-27] MEDS: SEVELAMER CARBONATE 800 MG TABLET PO SCH ×3 (09:19→17:58)
[2020-10-27] MEDS: LEVETIRACETAM 500MG TABLET PO SCH ×2 (09:19→17:58)
[2020-10-27] MEDS: FOLIC ACID/VITAMIN B COMP W-C TABLET PO SCH (09:19)
[2020-10-27] MEDS: HYDRALAZINE HCL 100MG TABLET PO SCH ×3 (09:20→17:58)
[2020-10-27] MEDS: DOXAZOSIN MESYLATE 2MG TABLET PO SCH (09:20)
[2020-10-27] MEDS: DEXAMETHASONE 10 MG/ML VIAL IV SCH (09:20)
[2020-10-27] MEDS: ENOXAPARIN 30MG/0.3ML SYR SUBCUT SCH (09:20)
[2020-10-27 11:13] LABS: PLATELET ESTIMATE NORMAL
[2020-10-27 12:00] VITALS: BP 104/60
[2020-10-27 16:00] VITALS: BP_SYST 133; BP_SYST 150; BP_DIAS 46; BP_DIAS 68
[2020-10-27 20:00] VITALS: BP 135/66
[2020-10-27] MEDS: ATORVASTATIN CALCIUM 40MG TABLET PO SCH (21:31)
[2020-10-27] MEDS: TRAZODONE HCL 50MG TABLET PO SCH (21:31)
[2020-10-28 00:38] VITALS: BP 133/68
[2020-10-28 04:00] VITALS: BP 129/67
[2020-10-28] MEDS: ACETAMINOPHEN 325MG TABLET PO PRN (05:24)
[2020-10-28] MEDS: BLOOD SUGAR DIAGNOSTIC STRIP TEST SCH ×4 (05:54→21:15)
[2020-10-28] MEDS: INSULIN LISPRO 100 UNITS/ML SUBCUT SCH ×4 (05:57→21:20)
[2020-10-28 06:55] LABS: HEMATOCRIT. 32.3 % (42.0-52.0); MEAN CORPUSCULAR HEMOGLOBIN 32.2 pg (28.0-32.0); MEAN CORPUSCULAR VOLUME 94.2 fL (80.0-94.0); MEAN PLATELET VOLUME 10.8 fl (7.4-10.4); PLATELET 164 x1000/uL (130-400); RED BLOOD CELL COUNT 3.43 mill/uL (4.7-6.1); RED CELL DISTRIBUTION WIDTH 15.3 % (11.6-14.6)
[2020-10-28 08:00] VITALS: BP 126/62
[2020-10-28] MEDS: LEVETIRACETAM 500MG TABLET PO SCH ×2 (08:51→18:00)
[2020-10-28] MEDS: SEVELAMER CARBONATE 800 MG TABLET PO SCH ×3 (08:51→18:00)
[2020-10-28] MEDS: DOXAZOSIN MESYLATE 2MG TABLET PO SCH (08:51)
[2020-10-28] MEDS: FOLIC ACID/VITAMIN B COMP W-C TABLET PO SCH (08:51)
[2020-10-28] MEDS: DEXAMETHASONE 10 MG/ML VIAL IV SCH (08:52)
[2020-10-28] MEDS: HYDRALAZINE HCL 100MG TABLET PO SCH ×2 (08:52→12:34)
[2020-10-28] MEDS: ENOXAPARIN 30MG/0.3ML SYR SUBCUT SCH (08:53)
[2020-10-28 09:04] LABS: BG BASE EXCESS -0.9 mmol/L (-2.0-2.0); BG CARBOXYHEMOGLOBIN 0.7 % (0.5-1.5); BG DEOXYHEMOGLOBIN 7.8 % (0.0-5.0); BG HCO3 ACT 22.3 mmol/L (22.0-26.0); BG METHEMOGLOBIN 0.3 % (0.0-1.5); BG OXYGEN SATURATION 92.1 % (92.0-98.5); BG OXYHEMOGLOBIN 91.2 % (94.0-97.0); BG PCO2 32.4 mmHg (35.0-45.0); BG PH 7.456 (7.350-7.450); BG PO2 68.4 mmHg (75.0-100.0); BG SAMPLE SITE RIGHT RADIAL; BG VENT MODE ROOM AIR
[2020-10-28 11:24] LABS: PLATELET ESTIMATE NORMAL
[2020-10-28 12:00] VITALS: BP 122/65
[2020-10-28 16:00] VITALS: BP 114/57
[2020-10-28 20:00] VITALS: BP 130/74
[2020-10-28] MEDS: TRAZODONE HCL 50MG TABLET PO SCH (21:19)
[2020-10-28] MEDS: ATORVASTATIN CALCIUM 40MG TABLET PO SCH (21:19)
[2020-10-29] VITALS: BP 140/67
[2020-10-29] MEDS: INSULIN LISPRO 100 UNITS/ML SUBCUT SCH ×4 (07:00→20:57)
[2020-10-29] MEDS: BLOOD SUGAR DIAGNOSTIC STRIP TEST SCH ×4 (07:00→20:57)
[2020-10-29 08:00] VITALS: BP 128/60
[2020-10-29] MEDS: SEVELAMER CARBONATE 800 MG TABLET PO SCH ×3 (10:08→17:28)
[2020-10-29] MEDS: FOLIC ACID/VITAMIN B COMP W-C TABLET PO SCH (10:08)
[2020-10-29] MEDS: DOXAZOSIN MESYLATE 2MG TABLET PO SCH (10:08)
[2020-10-29] MEDS: LEVETIRACETAM 500MG TABLET PO SCH ×2 (10:08→17:28)
[2020-10-29] MEDS: ENOXAPARIN 30MG/0.3ML SYR SUBCUT SCH (10:15)
[2020-10-29 12:00] VITALS: BP 115/5
[2020-10-29 16:00] VITALS: BP 112/61
[2020-10-29 20:00] VITALS: BP_SYST 113; BP_SYST 155; BP_DIAS 62; BP_DIAS 78
[2020-10-29] MEDS: TRAZODONE HCL 50MG TABLET PO SCH (21:21)
[2020-10-29] MEDS: ATORVASTATIN CALCIUM 40MG TABLET PO SCH (21:21)
[2020-10-30] VITALS: BP 107/60
[2020-10-30 04:00] VITALS: BP 124/62
[2020-10-30] MEDS: BLOOD SUGAR DIAGNOSTIC STRIP TEST SCH ×4 (06:17→20:15)
[2020-10-30] MEDS: INSULIN LISPRO 100 UNITS/ML SUBCUT SCH ×4 (06:17→20:15)
[2020-10-30 08:00] VITALS: BP 114/60
[2020-10-30] MEDS: FOLIC ACID/VITAMIN B COMP W-C TABLET PO SCH (09:44)
[2020-10-30] MEDS: SEVELAMER CARBONATE 800 MG TABLET PO SCH ×3 (09:44→17:43)
[2020-10-30] MEDS: ENOXAPARIN 30MG/0.3ML SYR SUBCUT SCH (09:45)
[2020-10-30] MEDS: LEVETIRACETAM 500MG TABLET PO SCH ×2 (09:45→17:42)
[2020-10-30] MEDS: DOXAZOSIN MESYLATE 2MG TABLET PO SCH (09:45)
[2020-10-30 12:00] VITALS: BP 107/53
[2020-10-30 16:00] VITALS: BP 110/60
[2020-10-30 20:00] VITALS: BP 117/66
[2020-10-30] MEDS: ATORVASTATIN CALCIUM 40MG TABLET PO SCH (20:51)
[2020-10-30] MEDS: TRAZODONE HCL 50MG TABLET PO SCH (20:51)
[2020-10-31] VITALS: BP 126/69
[2020-10-31 04:00] VITALS: BP 113/66
[2020-10-31] MEDS: BLOOD SUGAR DIAGNOSTIC STRIP TEST SCH ×4 (06:46→20:39)
[2020-10-31 06:50] LABS: BASOPHILS % 0.6 % (0.0-2.0); EOSINOPHILS % 1.6 % (0.0-5.0); HEMATOCRIT. 30.9 % (42.0-52.0); HEMOGLOBIN. 10.5 g/dL (14.0-18.0); MEAN CORPUSCULAR HEMOGLOBIN 32.5 pg (28.0-32.0); MEAN CORPUSCULAR VOLUME 95.5 fL (80.0-94.0); MEAN PLATELET VOLUME 10.1 fl (7.4-10.4); MONOCYTES % 6.9 % (2.0-8.0); NEUTROPHILS % 79.9 % (40.0-76.0); PLATELET 179 x1000/uL (130-400); RED BLOOD CELL COUNT 3.24 mill/uL (4.7-6.1); RED CELL DISTRIBUTION WIDTH 15.2 % (11.6-14.6)
[2020-10-31 08:00] VITALS: BP 114/69
[2020-10-31] MEDS: INSULIN LISPRO 100 UNITS/ML SUBCUT SCH ×4 (08:10→20:39)
[2020-10-31] MEDS: ENOXAPARIN 30MG/0.3ML SYR SUBCUT SCH (08:51)
[2020-10-31] MEDS: SEVELAMER CARBONATE 800 MG TABLET PO SCH ×3 (08:52→17:20)
[2020-10-31] MEDS: FOLIC ACID/VITAMIN B COMP W-C TABLET PO SCH (08:52)
[2020-10-31] MEDS: DOXAZOSIN MESYLATE 2MG TABLET PO SCH (08:55)
[2020-10-31] MEDS: LEVETIRACETAM 500MG TABLET PO SCH ×2 (08:56→17:20)
[2020-10-31 12:00] VITALS: BP 113/65
[2020-10-31 16:00] VITALS: BP 165/102
[2020-10-31 20:00] VITALS: BP 138/72
[2020-10-31] MEDS: ATORVASTATIN CALCIUM 40MG TABLET PO SCH (20:39)
[2020-10-31] MEDS: TRAZODONE HCL 50MG TABLET PO SCH (20:39)
[2020-11-01] VITALS: BP 168/84
[2020-11-01 04:00] VITALS: BP 148/80
[2020-11-01] MEDS: BLOOD SUGAR DIAGNOSTIC STRIP TEST SCH ×4 (06:54→21:00)
[2020-11-01 08:00] VITALS: BP 109/71
[2020-11-01] MEDS: INSULIN LISPRO 100 UNITS/ML SUBCUT SCH ×4 (08:10→21:00)
[2020-11-01] MEDS: FOLIC ACID/VITAMIN B COMP W-C TABLET PO SCH (09:53)
[2020-11-01] MEDS: LEVETIRACETAM 500MG TABLET PO SCH ×2 (09:53→17:33)
[2020-11-01] MEDS: DOXAZOSIN MESYLATE 2MG TABLET PO SCH (09:54)
[2020-11-01] MEDS: ENOXAPARIN 30MG/0.3ML SYR SUBCUT SCH (09:54)
[2020-11-01 12:00] VITALS: BP 110/60
[2020-11-01] MEDS: SEVELAMER CARBONATE 800 MG TABLET PO SCH ×3 (12:48→17:33)
[2020-11-01] MEDS: ACETAMINOPHEN 325MG TABLET PO PRN (12:49)
[2020-11-01 16:00] VITALS: BP 124/68
[2020-11-01 20:00] VITALS: BP 128/65
[2020-11-01] MEDS: ATORVASTATIN CALCIUM 40MG TABLET PO SCH (22:04)
[2020-11-01] MEDS: TRAZODONE HCL 50MG TABLET PO SCH (22:04)
[2020-11-02] VITALS: BP 132/70
[2020-11-02 04:00] VITALS: BP 142/67
[2020-11-02] MEDS: INSULIN LISPRO 100 UNITS/ML SUBCUT SCH ×4 (07:05→21:00)
[2020-11-02] MEDS: BLOOD SUGAR DIAGNOSTIC STRIP TEST SCH ×4 (07:05→21:15)
[2020-11-02 07:40] LABS: BASOPHILS % 0.8 % (0.0-2.0); EOSINOPHILS % 1.4 % (0.0-5.0); HEMATOCRIT. 31.3 % (42.0-52.0); HEMOGLOBIN. 10.5 g/dL (14.0-18.0); LYMPHOCYTES % 13.8 % (20.0-50.0); MEAN CORPUSCULAR HEMOGLOBIN 32.1 pg (28.0-32.0); MEAN CORPUSCULAR VOLUME 95.2 fL (80.0-94.0); MEAN PLATELET VOLUME 9.7 fl (7.4-10.4); MONOCYTES % 6.2 % (2.0-8.0); NEUTROPHILS % 77.8 % (40.0-76.0); PLATELET 181 x1000/uL (130-400); RED BLOOD CELL COUNT 3.29 mill/uL (4.7-6.1); RED CELL DISTRIBUTION WIDTH 14.7 % (11.6-14.6)
[2020-11-02 08:00] VITALS: BP 120/76
[2020-11-02] MEDS: FOLIC ACID/VITAMIN B COMP W-C TABLET PO SCH (08:56)
[2020-11-02] MEDS: SEVELAMER CARBONATE 800 MG TABLET PO SCH ×3 (08:56→17:31)
[2020-11-02] MEDS: LEVETIRACETAM 500MG TABLET PO SCH ×2 (08:56→17:31)
[2020-11-02] MEDS: ENOXAPARIN 30MG/0.3ML SYR SUBCUT SCH (08:57)
[2020-11-02] MEDS: DOXAZOSIN MESYLATE 2MG TABLET PO SCH (09:01)
[2020-11-02 12:00] VITALS: BP 104/67
[2020-11-02 16:00] VITALS: BP 118/77
[2020-11-02 20:00] VITALS: BP 112/94
[2020-11-02] MEDS: TRAZODONE HCL 50MG TABLET PO SCH (21:29)
[2020-11-02] MEDS: ATORVASTATIN CALCIUM 40MG TABLET PO SCH (21:29)
[2020-11-03] VITALS: BP 131/71
[2020-11-03 04:00] VITALS: BP 119/70
[2020-11-03] MEDS: BLOOD SUGAR DIAGNOSTIC STRIP TEST SCH ×4 (07:13→21:50)
[2020-11-03 08:00] VITALS: BP 124/76
[2020-11-03] MEDS: INSULIN LISPRO 100 UNITS/ML SUBCUT SCH ×4 (08:10→21:00)
[2020-11-03] MEDS: FOLIC ACID/VITAMIN B COMP W-C TABLET PO SCH (10:39)
[2020-11-03] MEDS: DOXAZOSIN MESYLATE 2MG TABLET PO SCH (10:40)
[2020-11-03] MEDS: LEVETIRACETAM 500MG TABLET PO SCH ×2 (10:40→18:08)
[2020-11-03] MEDS: ENOXAPARIN 30MG/0.3ML SYR SUBCUT SCH (10:42)
[2020-11-03] MEDS: SEVELAMER CARBONATE 800 MG TABLET PO SCH ×3 (10:42→18:08)
[2020-11-03 12:00] VITALS: BP 117/70
[2020-11-03 16:00] VITALS: BP 122/74
[2020-11-03 20:00] VITALS: BP 116/63
[2020-11-03] MEDS: TRAZODONE HCL 50MG TABLET PO SCH (21:50)
[2020-11-03] MEDS: ATORVASTATIN CALCIUM 40MG TABLET PO SCH (21:50)
[2020-11-04] VITALS: BP 157/80
[2020-11-04 04:00] VITALS: BP 144/79
[2020-11-04] MEDS: BLOOD SUGAR DIAGNOSTIC STRIP TEST SCH ×4 (06:33→21:00)
[2020-11-04 06:38] LABS: EOSINOPHILS % 2.1 % (0.0-5.0); HEMATOCRIT. 30.2 % (42.0-52.0); HEMOGLOBIN. 9.9 g/dL (14.0-18.0); LYMPHOCYTES % 16.3 % (20.0-50.0); MEAN CORPUSCULAR VOLUME 94.6 fL (80.0-94.0); MEAN PLATELET VOLUME 9.2 fl (7.4-10.4); MONOCYTES % 8.8 % (2.0-8.0); NEUTROPHILS % 71.8 % (40.0-76.0); PLATELET 168 x1000/uL (130-400); RED BLOOD CELL COUNT 3.19 mill/uL (4.7-6.1); RED CELL DISTRIBUTION WIDTH 14.9 % (11.6-14.6)
[2020-11-04 08:00] VITALS: BP 132/78
[2020-11-04] MEDS: INSULIN LISPRO 100 UNITS/ML SUBCUT SCH ×4 (08:10→21:00)
[2020-11-04] MEDS: DOXAZOSIN MESYLATE 2MG TABLET PO SCH (09:00)
[2020-11-04] MEDS: FOLIC ACID/VITAMIN B COMP W-C TABLET PO SCH (10:15)
[2020-11-04] MEDS: LEVETIRACETAM 500MG TABLET PO SCH ×2 (10:15→18:07)
[2020-11-04] MEDS: SEVELAMER CARBONATE 800 MG TABLET PO SCH ×3 (10:15→18:07)
[2020-11-04] MEDS: ENOXAPARIN 30MG/0.3ML SYR SUBCUT SCH (10:17)
[2020-11-04 12:00] VITALS: BP 144/72
[2020-11-04 20:00] VITALS: BP 138/72
[2020-11-04] MEDS: ATORVASTATIN CALCIUM 40MG TABLET PO SCH (23:55)
[2020-11-04] MEDS: TRAZODONE HCL 50MG TABLET PO SCH (23:55)
[2020-11-05] VITALS: BP 153/93
[2020-11-05 04:00] VITALS: BP 137/67
[2020-11-05] MEDS: BLOOD SUGAR DIAGNOSTIC STRIP TEST SCH ×4 (07:17→21:06)
[2020-11-05] MEDS: INSULIN LISPRO 100 UNITS/ML SUBCUT SCH ×4 (08:10→21:00)
[2020-11-05 09:15] VITALS: BP 118/70
[2020-11-05] MEDS: SEVELAMER CARBONATE 800 MG TABLET PO SCH ×3 (11:18→18:02)
[2020-11-05] MEDS: LEVETIRACETAM 500MG TABLET PO SCH ×2 (11:18→18:02)
[2020-11-05] MEDS: DOXAZOSIN MESYLATE 2MG TABLET PO SCH (11:18)
[2020-11-05] MEDS: FOLIC ACID/VITAMIN B COMP W-C TABLET PO SCH (11:18)
[2020-11-05] MEDS: ENOXAPARIN 30MG/0.3ML SYR SUBCUT SCH (11:20)
[2020-11-05 12:49] VITALS: BP 134/74
[2020-11-05 17:10] VITALS: BP 144/72
[2020-11-05 20:00] VITALS: BP 128/96
[2020-11-05] MEDS: TRAZODONE HCL 50MG TABLET PO SCH (21:44)
[2020-11-05] MEDS: ATORVASTATIN CALCIUM 40MG TABLET PO SCH (21:44)
[2020-11-06] VITALS: BP 132/64
[2020-11-06 04:00] VITALS: BP 125/70
[2020-11-06] MEDS: BLOOD SUGAR DIAGNOSTIC STRIP TEST SCH ×4 (06:59→20:31)
[2020-11-06 08:00] VITALS: BP 111/65
[2020-11-06] MEDS: INSULIN LISPRO 100 UNITS/ML SUBCUT SCH ×4 (08:10→20:31)
[2020-11-06] MEDS: ENOXAPARIN 30MG/0.3ML SYR SUBCUT SCH (08:47)
[2020-11-06] MEDS: LEVETIRACETAM 500MG TABLET PO SCH ×2 (08:48→16:55)
[2020-11-06] MEDS: FOLIC ACID/VITAMIN B COMP W-C TABLET PO SCH (08:48)
[2020-11-06] MEDS: SEVELAMER CARBONATE 800 MG TABLET PO SCH ×2 (08:48→16:55)
[2020-11-06] MEDS: DOXAZOSIN MESYLATE 2MG TABLET PO SCH (08:48)
[2020-11-06 12:00] VITALS: BP 119/75
[2020-11-06 16:00] VITALS: BP 130/70
[2020-11-06 20:00] VITALS: BP 131/75
[2020-11-06] MEDS: ATORVASTATIN CALCIUM 40MG TABLET PO SCH (21:47)
[2020-11-06] MEDS: TRAZODONE HCL 50MG TABLET PO SCH (21:47)
[2020-11-07] VITALS: BP 165/86
[2020-11-07 04:00] VITALS: BP 128/74
[2020-11-07] MEDS: BLOOD SUGAR DIAGNOSTIC STRIP TEST SCH ×4 (06:41→20:29)
[2020-11-07] MEDS: INSULIN LISPRO 100 UNITS/ML SUBCUT SCH ×4 (08:05→20:29)
[2020-11-07 08:47] VITALS: BP 127/68
[2020-11-07] MEDS: FOLIC ACID/VITAMIN B COMP W-C TABLET PO SCH (08:56)
[2020-11-07] MEDS: SEVELAMER CARBONATE 800 MG TABLET PO SCH ×3 (08:56→17:37)
[2020-11-07] MEDS: LEVETIRACETAM 500MG TABLET PO SCH ×2 (08:56→17:37)
[2020-11-07] MEDS: DOXAZOSIN MESYLATE 2MG TABLET PO SCH (08:57)
[2020-11-07] MEDS: ENOXAPARIN 30MG/0.3ML SYR SUBCUT SCH (08:57)
[2020-11-07 12:00] VITALS: BP 141/68
[2020-11-07 16:00] VITALS: BP 125/70
[2020-11-07 20:00] VITALS: BP 147/64
[2020-11-07] MEDS: TRAZODONE HCL 50MG TABLET PO SCH (22:13)
[2020-11-07] MEDS: ATORVASTATIN CALCIUM 40MG TABLET PO SCH (22:13)
[2020-11-08] VITALS: BP 135/73
[2020-11-08 04:00] VITALS: BP 141/71
[2020-11-08] MEDS: ACETAMINOPHEN 325MG TABLET PO PRN (04:48)
[2020-11-08] MEDS: BLOOD SUGAR DIAGNOSTIC STRIP TEST SCH ×4 (06:08→20:51)
[2020-11-08] MEDS: INSULIN LISPRO 100 UNITS/ML SUBCUT SCH ×4 (06:15→20:51)
[2020-11-08 08:00] VITALS: BP 118/71
[2020-11-08] MEDS: LEVETIRACETAM 500MG TABLET PO SCH ×2 (08:44→18:33)
[2020-11-08] MEDS: FOLIC ACID/VITAMIN B COMP W-C TABLET PO SCH (08:44)
[2020-11-08] MEDS: SEVELAMER CARBONATE 800 MG TABLET PO SCH ×3 (08:44→18:33)
[2020-11-08] MEDS: ENOXAPARIN 30MG/0.3ML SYR SUBCUT SCH (08:45)
[2020-11-08] MEDS: DOXAZOSIN MESYLATE 2MG TABLET PO SCH (10:47)
[2020-11-08 12:00] VITALS: BP 136/89
[2020-11-08 16:00] VITALS: BP 124/69
[2020-11-08 16:30] LABS: BASOPHILS % 1.4 % (0.0-2.0); EOSINOPHILS % 4.4 % (0.0-5.0); HEMATOCRIT. 26.7 % (42.0-52.0); HEMOGLOBIN. 8.9 g/dL (14.0-18.0); MEAN CORPUSCULAR HEMOGLOBIN 31.5 pg (28.0-32.0); MEAN CORPUSCULAR VOLUME 94.1 fL (80.0-94.0); MEAN PLATELET VOLUME 8.3 fl (7.4-10.4); MONOCYTES % 7.6 % (2.0-8.0); NEUTROPHILS % 66.6 % (40.0-76.0); PLATELET 177 x1000/uL (130-400); RED BLOOD CELL COUNT 2.83 mill/uL (4.7-6.1); RED CELL DISTRIBUTION WIDTH 14.6 % (11.6-14.6)
[2020-11-08 20:00] VITALS: BP 131/75
[2020-11-08] MEDS: ATORVASTATIN CALCIUM 40MG TABLET PO SCH (20:55)
[2020-11-08] MEDS: TRAZODONE HCL 50MG TABLET PO SCH (20:56)
[2020-11-09] VITALS: BP 138/82
[2020-11-09 04:00] VITALS: BP 148/80
[2020-11-09] MEDS: INSULIN LISPRO 100 UNITS/ML SUBCUT SCH ×2 (08:10→12:28)
[2020-11-09] MEDS: BLOOD SUGAR DIAGNOSTIC STRIP TEST SCH ×2 (08:12→12:29)
[2020-11-09] MEDS: DOXAZOSIN MESYLATE 2MG TABLET PO SCH (08:28)
[2020-11-09] MEDS: SEVELAMER CARBONATE 800 MG TABLET PO SCH ×2 (08:28→12:32)
[2020-11-09] MEDS: LEVETIRACETAM 500MG TABLET PO SCH (08:29)
[2020-11-09] MEDS: FOLIC ACID/VITAMIN B COMP W-C TABLET PO SCH (08:29)
[2020-11-09] MEDS: ENOXAPARIN 30MG/0.3ML SYR SUBCUT SCH (10:01)
[2020-11-09 12:00] VITALS: BP 140/55
[2020-11-09 14:11] VITALS: BP 106/60
[2020-11-09 16:00] VITALS: BP 114/60
== END 2020-11-09 16:50 | DRG 871 ==
LOC: ER 13:39 → EDBEDREQTM 17:40 → EDBEDREQ 17:40 → EDBEDREQSVC 17:40 → EDBEDREQ 18:58 → EDBEDREQTM 18:58 → ENRESERV 20:07 → 8WST 22:06 → 7EST 10-17 15:42 → 7WST 10-17 18:14 → UNDODISIN 10-18 14:44
PROVIDERS: ADMIT Internal Medicine; ATTEND Internal Medicine
PROC: 5A1D70Z Performance of Urinary Filtration, Intermittent, Less than 6 Hours Per Day (ICD-10-PCS; 2020-10-17)
PROC: 5A1D70Z Performance of Urinary Filtration, Intermittent, Less than 6 Hours Per Day (ICD-10-PCS; 2020-10-19)
PROC: XW13325 Transfusion of Convalescent Plasma (Nonautologous) into Peripheral Vein, Percutaneous Approach, New Technology Group 5 (ICD-10-PCS; principal; 2020-10-21)
PROC: 5A1D70Z Performance of Urinary Filtration, Intermittent, Less than 6 Hours Per Day (ICD-10-PCS; 2020-10-21)
PROC: 5A1D70Z Performance of Urinary Filtration, Intermittent, Less than 6 Hours Per Day (ICD-10-PCS; 2020-10-23)
PROC: 5A1D70Z Performance of Urinary Filtration, Intermittent, Less than 6 Hours Per Day (ICD-10-PCS; 2020-10-26)
PROC: 5A1D70Z Performance of Urinary Filtration, Intermittent, Less than 6 Hours Per Day (ICD-10-PCS; 2020-10-28)
PROC: 5A1D70Z Performance of Urinary Filtration, Intermittent, Less than 6 Hours Per Day (ICD-10-PCS; 2020-10-31)
PROC: 5A1D70Z Performance of Urinary Filtration, Intermittent, Less than 6 Hours Per Day (ICD-10-PCS; 2020-11-02)
PROC: 5A1D70Z Performance of Urinary Filtration, Intermittent, Less than 6 Hours Per Day (ICD-10-PCS; 2020-11-04)
PROC: 5A1D70Z Performance of Urinary Filtration, Intermittent, Less than 6 Hours Per Day (ICD-10-PCS; 2020-11-05)
PROC: 5A1D70Z Performance of Urinary Filtration, Intermittent, Less than 6 Hours Per Day (ICD-10-PCS; 2020-11-08)
DX: A41.89 Other specified sepsis (principal); U07.1 COVID-19; J96.01 Acute respiratory failure with hypoxia; N18.6 End stage renal disease; J12.89 Other viral pneumonia; G92 Toxic encephalopathy; I50.43 Acute on chronic combined systolic (congestive) and diastolic (congestive) heart failure; J44.0 Chronic obstructive pulmonary disease with (acute) lower respiratory infection; I13.2 Hypertensive heart and chronic kidney disease with heart failure and with stage 5 chronic kidney disease, or end stage renal disease; J44.1 Chronic obstructive pulmonary disease with (acute) exacerbation; B97.89 Other viral agents as the cause of diseases classified elsewhere; D64.9 Anemia, unspecified; E11.22 Type 2 diabetes mellitus with diabetic chronic kidney disease; E11.649 Type 2 diabetes mellitus with hypoglycemia without coma; E87.5 Hyperkalemia; E87.8 Other disorders of electrolyte and fluid balance, not elsewhere classified; E83.39 Other disorders of phosphorus metabolism; M41.84 Other forms of scoliosis, thoracic region; M19.90 Unspecified osteoarthritis, unspecified site; F14.11 Cocaine abuse, in remission; Z88.0 Allergy status to penicillin; Z99.2 Dependence on renal dialysis; Z82.49 Family history of ischemic heart disease and other diseases of the circulatory system; Z79.899 Other long term (current) drug therapy
CPT/HCPCS: 36415; 36600; 71045; 80048; 80053; 80202; 80307; 80320; 81003; 82140; 82375; 82607; 82728; 82746; 82805; 82962; 83036; 83605; 83615; 84100; 84145; 84439; 84443; 84481; 84484; 85025; 85379; 86141; 86705; 86709; 86803; 86850; 86900; 86927; 87340; 87426; 87635; 90585; 93005; 93306; 93970; 96374; 99291; C1893; J0610; J1100; J1650; J1815; J1956; J3370; J3490; J7030; J7040; J7060; P9017; U0003; G0480

== ENCOUNTER → 2020-12-16 | Outpatient (CLI) | payer MEDICARE, OTHER, MEDICAID ==
[~2020-12-16] MED LIST changes: +ATOR40TA70 PO; +CEFAZOLIN SODIUM 1000MG/VIAL ONE; +FENTANYL CITRATE/PF 50MCG/ML 2ML VIAL ONE; +LIDOCAINE HCL 1% 20ML VIAL (Pyxis) INJ ONE; +LIDOCAINE HCL 2% JELLY 5ML ONE; +MIDAZOLAM HCL 2 MG/2 ML VIAL ONE; +PROPOFOL 200MG/20ML VIAL IV ONE; +TRAZ-251 PO
== END | disposition home or self-care (01) ==
LOC: LAB 12:21
PROVIDERS: ATTEND Surgery Vascular Surgery
DX: N18.6 End stage renal disease (principal); Z20.822 Contact with and (suspected) exposure to COVID-19
CPT/HCPCS: C9803; U0003

== ENCOUNTER 2020-12-19 11:38 | Day surgery (SDC) | payer MEDICARE, OTHER ==
[~2020-12-19] VITALS: Ht 180.3 cm; Wt 88.5 kg
[~2020-12-19 11:38] MED LIST changes: -CEFAZOLIN SODIUM 1000MG/VIAL ONE; -FENTANYL CITRATE/PF 50MCG/ML 2ML VIAL ONE; -LIDOCAINE HCL 1% 20ML VIAL (Pyxis) INJ ONE; -LIDOCAINE HCL 2% JELLY 5ML ONE; -MIDAZOLAM HCL 2 MG/2 ML VIAL ONE; -PROPOFOL 200MG/20ML VIAL IV ONE
[2020-12-19] MEDS ORDERED: BACITRACIN 15GM TUBE TOP ONE (11:44)
[2020-12-19] MEDS ORDERED: LIDOCAINE HCL 1% 20ML VIAL (Pyxis) INJ ONE (11:45)
[2020-12-19] MEDS ORDERED: SODIUM CHLORIDE 0.9% 250 ML IV ONE (11:45)
[2020-12-19] MEDS ORDERED: BACITRACIN 50,000 UNITS/VIAL ONE (11:45)
[2020-12-19] MEDS ORDERED: SODIUM CHLORIDE 0.9% INJ 10ML FLUSH IVF ONE (11:45)
[2020-12-19] MEDS ORDERED: BUPIVACAINE HCL/PF 0.5% (5MG/ML) 10ML ONE (11:45)
[2020-12-19] MEDS ORDERED: THROMBIN (BOVINE) 5000 UNITS/VIAL TOP ONE (11:45)
[2020-12-19] MEDS ORDERED: SODIUM CHLORIDE 0.9% IRRIG SOL 1,000 ML IR ONE (11:45)
[2020-12-19] MEDS ORDERED: HEPARIN SODIUM 1,000 UNIT/1ML VIAL IV ONE (11:46)
[2020-12-19 12:26] LABS: BASOPHILS % 0.8 % (0.0-2.0); EOSINOPHILS % 2.5 % (0.0-5.0); HEMATOCRIT. 26.8 % (42.0-52.0); LYMPHOCYTES % 13.9 % (20.0-50.0); MEAN CORPUSCULAR HEMOGLOBIN 32.7 pg (28.0-32.0); MEAN CORPUSCULAR VOLUME 97.7 fL (80.0-94.0); MONOCYTES % 5.4 % (2.0-8.0); NEUTROPHILS % 77.4 % (40.0-76.0); RED BLOOD CELL COUNT 2.74 mill/uL (4.7-6.1); RED CELL DISTRIBUTION WIDTH 17.7 % (11.6-14.6)
[2020-12-19 12:33] LABS: PARTIAL THROMBOPLASTIN TIME 21.6 sec (23.4-31.0); PROTHROMBIN TIME 10.7 sec (9.6-11.0)
[2020-12-19] MEDS ORDERED: SODIUM CHLORIDE 0.9% 500 ML IV NR (13:00)
[2020-12-19 13:09] LABS: PLATELET 206 x1000/uL (130-400)
[2020-12-19] MEDS ORDERED: ONDANSETRON HCL 4MG/2ML INJ IV PRN ×2 (15:00→15:15)
[2020-12-19] MEDS ORDERED: HYDROCODONE/ACETAMINOPHEN 5/325MG TABLET PO PRN (15:00)
[2020-12-19] MEDS ORDERED: ACETAMINOPHEN 325MG TABLET PO PRN (15:00)
[2020-12-19] MEDS ORDERED: MEPERIDINE HCL/PF 25MG/ML CPJ IV PRN (15:15)
[2020-12-19] MEDS ORDERED: DIPHENHYDRAMINE 50MG/ML VIAL IV PRN (15:15)
[2020-12-19] MEDS ORDERED: METOCLOPRAMIDE HCL 10MG/2ML VIAL IV PRN (15:15)
[2020-12-19] MEDS: HYDROMORPHONE HCL/PF 2MG/ML CPJ IV PRN ×2 (16:42→17:04)
[2020-12-19 17:04] VITALS: BP 156/80
[2020-12-19] MEDS ORDERED: HEPARIN SODIUM 1,000 UNIT/1ML VIAL IV NR (17:15)
[2020-12-19] MEDS ORDERED: SODIUM CHLORIDE 0.9% INJ 3ML FLUSH IVF SCH (22:00)
== END 2020-12-19 18:00 | disposition home or self-care (01) ==
LOC: OR 11:38
PROVIDERS: ATTEND Surgery Vascular Surgery
DX: I13.2 Hypertensive heart and chronic kidney disease with heart failure and with stage 5 chronic kidney disease, or end stage renal disease (principal); I50.9 Heart failure, unspecified; E11.22 Type 2 diabetes mellitus with diabetic chronic kidney disease; J44.9 Chronic obstructive pulmonary disease, unspecified; N18.6 End stage renal disease; I25.10 Atherosclerotic heart disease of native coronary artery without angina pectoris; Z99.2 Dependence on renal dialysis; Z88.0 Allergy status to penicillin; Z72.89 Other problems related to lifestyle; Z79.899 Other long term (current) drug therapy; Z98.890 Other specified postprocedural states; Z82.49 Family history of ischemic heart disease and other diseases of the circulatory system
CPT/HCPCS: 36415; 36819; 80048; 85025; 85610; 85730; 93005; J0690; J1170; J1644; J2250; J2405; J2704; J3010; J3490; J7030; J7040; J7050

== ENCOUNTER 2021-03-15 05:31 | Inpatient (IN) | payer MEDICARE, OTHER ==
[~2021-03-15] VITALS: Ht 180.3 cm; Wt 72.1 kg
[~2021-03-15 05:31] MED LIST changes: -CLON0.1T PO; -HYDR100T26 PO; -LOSA100T32 PO; -NEBI5TAB3 PO
[2021-03-15] MEDS ORDERED: LEVOFLOXACIN 750MG PREMIX 150 ML IV ONE (07:45)
[2021-03-15 07:55] LABS: HEMATOCRIT. 38.8 % (42.0-52.0); HEMOGLOBIN. 12.7 g/dL (14.0-18.0); MEAN CORPUSCULAR HEMOGLOBIN 31.6 pg (28.0-32.0); MEAN CORPUSCULAR VOLUME 96.4 fL (80.0-94.0); MEAN PLATELET VOLUME 8.3 fl (7.4-10.4); PLATELET 188 x1000/uL (130-400); RED BLOOD CELL COUNT 4.02 mill/uL (4.7-6.1)
[2021-03-15 08:01] LABS: CHLORIDE 100 mEq/L (98-107)
[2021-03-15 08:05] LABS: ETHANOL BLOOD < 10 mg/dL
[2021-03-15] MEDS ORDERED: ACETAMINOPHEN 325MG TABLET PO ONE (08:15)
[2021-03-15] MEDS ORDERED: FUROSEMIDE 100MG/10ML VIAL IV STA (09:05)
[2021-03-15] MEDS ORDERED: INSULIN REGULAR (HUMULIN R) 300UNITS/3ML VIAL IV ONE (09:15)
[2021-03-15] MEDS ORDERED: SODIUM BICARBONATE 8.4% 1 MEQ/ML 50ML SYR IV ONE (09:15)
[2021-03-15] MEDS ORDERED: ALBUTEROL (0.083%) 2.5MG/3ML NEB HHN ONE (09:15)
[2021-03-15] MEDS ORDERED: DEXTROSE 50% WATER 50ML SYRINGE IV ONE (09:15)
[2021-03-15] MEDS ORDERED: CALCIUM GLUCONATE 100MG/ML 10ML VIAL IV ONE (09:15)
[2021-03-15 09:32] LABS: PLATELET ESTIMATE NORMAL
[2021-03-15] MEDS ORDERED: MEROPENEM 1,000 MG in SODIUM CHLORIDE 0.9% 100 ML IV SCH (10:00)
[2021-03-15] MEDS ORDERED: ENOXAPARIN 40MG/0.4ML SYR SUBCUT SCH (10:00)
[2021-03-15] MEDS ORDERED: NITROGLYCERIN 0.4MG TABLET SL SL PRN (10:00)
[2021-03-15] MEDS ORDERED: GUAIFENESIN 200MG/10ML SUGAR FREE UDC PO PRN (10:00)
[2021-03-15] MEDS ORDERED: CLONIDINE 0.1MG TABLET PO PRN (10:00)
[2021-03-15] MEDS ORDERED: MAGNESIUM/ALUMINUM HYDROXIDE/SIMETHICONE 30ML UDC PO PRN (10:00)
[2021-03-15] MEDS ORDERED: ACETAMINOPHEN 325MG TABLET PO PRN ×2 (10:00)
[2021-03-15] MEDS ORDERED: ONDANSETRON HCL 4MG/2ML INJ IV PRN (10:00)
[2021-03-15] MEDS ORDERED: IPRATROPIUM/ALBUTEROL 0.5-3(2.5)MG/3ML NEB NEB PRN (10:00)
[2021-03-15] MEDS ORDERED: VANCOMYCIN 1 G PREMIX 200 ML IV SCH (11:00)
[2021-03-15] MEDS: FAMOTIDINE 20MG TABLET PO SCH (11:00)
[2021-03-15] MEDS: ENOXAPARIN 30MG/0.3ML SYR SUBCUT SCH (11:00)
[2021-03-15] MEDS: GUAIFENESIN/DM 600MG/30MG ER TAB 12HR PO SCH ×2 (11:00→21:26)
[2021-03-15] MEDS: ASPIRIN 325MG EC TABLET PO SCH (11:04)
[2021-03-15] MEDS: ZINC SULFATE 220 MG ( 50 ) CAPSULE PO SCH (11:09)
[2021-03-15] MEDS: LEVETIRACETAM 500MG TABLET PO SCH ×2 (11:09→21:26)
[2021-03-15] MEDS: ASCORBIC ACID 500 MG TABLET PO SCH ×2 (11:10→21:26)
[2021-03-15] MEDS: CHOLECALCIFEROL (D3) 1000 UNIT TABLET PO SCH (11:14)
[2021-03-15] MEDS: MEROPENEM 500MG in NORMAL SALINE 50ML IV SCH (12:00)
[2021-03-15] MEDS: SEVELAMER CARBONATE 800 MG TABLET PO SCH ×2 (12:52→17:25)
[2021-03-15 14:00] VITALS: BP 97/49
[2021-03-15] MEDS ORDERED: DEXTROSE 50% WATER 50ML SYRINGE IV PRN (14:15)
[2021-03-15 15:48] VITALS: BP 123/89
[2021-03-15] MEDS: BLOOD SUGAR DIAGNOSTIC STRIP TEST SCH ×2 (17:25→21:32)
[2021-03-15] MEDS: INSULIN LISPRO 100 UNITS/ML SUBCUT SCH ×2 (17:31→21:00)
[2021-03-15 20:00] VITALS: BP 106/56
[2021-03-15 20:17] LABS: CREATINE KINASE 76 IU/L (39-308)
[2021-03-15 20:18] LABS: CREATINE KINASE MB FRACTION < 1.0 ng/mL (0.5-3.6)
[2021-03-15] MEDS ORDERED: FAMOTIDINE 20MG TABLET PO SCH (21:00)
[2021-03-15] MEDS: ATORVASTATIN CALCIUM 40MG TABLET PO SCH (21:26)
[2021-03-15] MEDS: ZOLPIDEM TARTRATE 5MG TABLET PO PRN (21:27)
[2021-03-15] MEDS: TRAMADOL 50MG TABLET PO PRN (21:28)
[2021-03-16] VITALS: BP 112/54
[2021-03-16 00:48] LABS: CREATINE KINASE 105 IU/L (39-308); CREATINE KINASE MB FRACTION < 1.0 ng/mL (0.5-3.6)
[2021-03-16] MEDS: DIPHENHYDRAMINE 50MG/ML VIAL IV PRN ×3 (03:58→21:23)
[2021-03-16 04:00] VITALS: BP 127/64
[2021-03-16] MEDS: TRAMADOL 50MG TABLET PO PRN (04:04)
[2021-03-16] MEDS: BLOOD SUGAR DIAGNOSTIC STRIP TEST SCH ×4 (06:52→21:19)
[2021-03-16] MEDS: INSULIN LISPRO 100 UNITS/ML SUBCUT SCH ×4 (07:50→21:00)
[2021-03-16 08:00] VITALS: BP 134/67
[2021-03-16] MEDS: ASCORBIC ACID 500 MG TABLET PO SCH ×2 (09:38→21:18)
[2021-03-16] MEDS: ZINC SULFATE 220 MG ( 50 ) CAPSULE PO SCH (09:39)
[2021-03-16] MEDS: SEVELAMER CARBONATE 800 MG TABLET PO SCH ×3 (09:39→17:50)
[2021-03-16] MEDS: FAMOTIDINE 20MG TABLET PO SCH (09:39)
[2021-03-16] MEDS: GUAIFENESIN/DM 600MG/30MG ER TAB 12HR PO SCH ×2 (09:40→21:18)
[2021-03-16] MEDS: ASPIRIN 325MG EC TABLET PO SCH (09:40)
[2021-03-16] MEDS: LEVETIRACETAM 500MG TABLET PO SCH ×2 (09:40→21:18)
[2021-03-16] MEDS: CHOLECALCIFEROL (D3) 1000 UNIT TABLET PO SCH (09:40)
[2021-03-16] MEDS: ENOXAPARIN 30MG/0.3ML SYR SUBCUT SCH (09:43)
[2021-03-16 09:56] LABS: HEMATOCRIT. 33.9 % (42.0-52.0); HEMOGLOBIN. 11.2 g/dL (14.0-18.0); MEAN CORPUSCULAR HEMOGLOBIN 31.7 pg (28.0-32.0); MEAN CORPUSCULAR VOLUME 95.9 fL (80.0-94.0); MEAN PLATELET VOLUME 8.9 fl (7.4-10.4); PLATELET 176 x1000/uL (130-400); RED BLOOD CELL COUNT 3.53 mill/uL (4.7-6.1); RED CELL DISTRIBUTION WIDTH 14.9 % (11.6-14.6)
[2021-03-16 10:05] LABS: CHLORIDE 103 mEq/L (98-107)
[2021-03-16 10:13] LABS: PHOSPHORUS 7.6 mg/dL (2.5-4.9)
[2021-03-16 12:00] VITALS: BP 114/69
[2021-03-16] MEDS ORDERED: VANCOMYCIN 1250MG in DEXTROSE 5% WATER 250ML IV SCH (12:00)
[2021-03-16] MEDS: MEROPENEM 500MG in NORMAL SALINE 50ML IV SCH (12:44)
[2021-03-16] MEDS: DOCUSATE SODIUM 100MG CAPSULE PO PRN (12:44)
[2021-03-16 13:23] LABS: PLATELET ESTIMATE NORMAL
[2021-03-16 16:00] VITALS: BP 109/62
[2021-03-16 20:38] VITALS: BP 134/68
[2021-03-16] MEDS: ZOLPIDEM TARTRATE 5MG TABLET PO PRN (21:18)
[2021-03-16] MEDS: ATORVASTATIN CALCIUM 40MG TABLET PO SCH (21:18)
[2021-03-17] VITALS: BP 138/72
[2021-03-17 04:00] VITALS: BP 158/70
[2021-03-17] MEDS: BLOOD SUGAR DIAGNOSTIC STRIP TEST SCH ×4 (06:21→20:23)
[2021-03-17 06:49] LABS: HEMATOCRIT. 33.7 % (42.0-52.0); MEAN CORPUSCULAR HEMOGLOBIN 31.7 pg (28.0-32.0); MEAN CORPUSCULAR VOLUME 97.1 fL (80.0-94.0); MEAN PLATELET VOLUME 8.8 fl (7.4-10.4); PLATELET 176 x1000/uL (130-400); RED BLOOD CELL COUNT 3.47 mill/uL (4.7-6.1); RED CELL DISTRIBUTION WIDTH 15.2 % (11.6-14.6)
[2021-03-17] MEDS: INSULIN LISPRO 100 UNITS/ML SUBCUT SCH ×4 (07:38→20:23)
[2021-03-17] MEDS: SEVELAMER CARBONATE 800 MG TABLET PO SCH ×3 (07:38→17:22)
[2021-03-17 07:55] VITALS: BP 150/82
[2021-03-17] MEDS: ASPIRIN 325MG EC TABLET PO SCH (08:30)
[2021-03-17] MEDS: ENOXAPARIN 30MG/0.3ML SYR SUBCUT SCH (08:30)
[2021-03-17] MEDS ORDERED: HEPARIN SODIUM 1,000 UNIT/1ML VIAL IV SCH (09:45)
[2021-03-17 11:40] VITALS: BP 134/81
[2021-03-17] MEDS: CHOLECALCIFEROL (D3) 1000 UNIT TABLET PO SCH (14:06)
[2021-03-17] MEDS: ZINC SULFATE 220 MG ( 50 ) CAPSULE PO SCH (14:06)
[2021-03-17] MEDS: FAMOTIDINE 20MG TABLET PO SCH (14:06)
[2021-03-17] MEDS: LEVETIRACETAM 500MG TABLET PO SCH ×2 (14:06→21:18)
[2021-03-17] MEDS: ASCORBIC ACID 500 MG TABLET PO SCH ×2 (14:06→21:18)
[2021-03-17] MEDS: MEROPENEM 500MG in NORMAL SALINE 50ML IV SCH (14:07)
[2021-03-17] MEDS: GUAIFENESIN/DM 600MG/30MG ER TAB 12HR PO SCH ×2 (14:07→21:18)
[2021-03-17 16:03] VITALS: BP 137/86
[2021-03-17] MEDS: DOCUSATE SODIUM 100MG CAPSULE PO PRN (17:51)
[2021-03-17 20:00] VITALS: BP 135/73
[2021-03-17] MEDS: ATORVASTATIN CALCIUM 40MG TABLET PO SCH (21:18)
[2021-03-17] MEDS: ZOLPIDEM TARTRATE 5MG TABLET PO PRN (21:18)
[2021-03-17] MEDS: TRAMADOL 50MG TABLET PO PRN (21:19)
[2021-03-17 22:33] LABS: PLATELET ESTIMATE NORMAL
[2021-03-18] VITALS: BP 150/74
[2021-03-18 03:44] VITALS: BP 137/82
[2021-03-18] MEDS: DIPHENHYDRAMINE 50MG/ML VIAL IV PRN ×3 (04:46→20:28)
[2021-03-18] MEDS: TRAMADOL 50MG TABLET PO PRN (05:03)
[2021-03-18] MEDS: BLOOD SUGAR DIAGNOSTIC STRIP TEST SCH ×4 (06:25→20:30)
[2021-03-18 06:59] LABS: HEMOGLOBIN. 11.6 g/dL (14.0-18.0); MEAN CORPUSCULAR HEMOGLOBIN 31.6 pg (28.0-32.0); MEAN CORPUSCULAR VOLUME 95.2 fL (80.0-94.0); MEAN PLATELET VOLUME 8.4 fl (7.4-10.4); PLATELET 177 x1000/uL (130-400); RED BLOOD CELL COUNT 3.68 mill/uL (4.7-6.1); RED CELL DISTRIBUTION WIDTH 14.8 % (11.6-14.6)
[2021-03-18] MEDS: INSULIN LISPRO 100 UNITS/ML SUBCUT SCH ×4 (07:50→20:31)
[2021-03-18 08:00] VITALS: BP 155/78
[2021-03-18] MEDS: SEVELAMER CARBONATE 800 MG TABLET PO SCH ×3 (09:08→18:48)
[2021-03-18] MEDS: FAMOTIDINE 20MG TABLET PO SCH (09:08)
[2021-03-18] MEDS: ZINC SULFATE 220 MG ( 50 ) CAPSULE PO SCH (09:08)
[2021-03-18] MEDS: ASPIRIN 325MG EC TABLET PO SCH (09:08)
[2021-03-18] MEDS: ENOXAPARIN 30MG/0.3ML SYR SUBCUT SCH (09:17)
[2021-03-18] MEDS: LEVETIRACETAM 500MG TABLET PO SCH ×2 (09:17→20:28)
[2021-03-18] MEDS: GUAIFENESIN/DM 600MG/30MG ER TAB 12HR PO SCH ×2 (09:17→20:28)
[2021-03-18] MEDS: ASCORBIC ACID 500 MG TABLET PO SCH ×2 (09:17→20:28)
[2021-03-18] MEDS: CHOLECALCIFEROL (D3) 1000 UNIT TABLET PO SCH (09:17)
[2021-03-18 10:54] LABS: EOSINOPHILS % 7.5 % (0.0-5.0); HEMATOCRIT. 34.9 % (42.0-52.0); HEMOGLOBIN. 11.4 g/dL (14.0-18.0); LYMPHOCYTES % 26.6 % (20.0-50.0); MEAN CORPUSCULAR HEMOGLOBIN 31.6 pg (28.0-32.0); MEAN CORPUSCULAR VOLUME 96.5 fL (80.0-94.0); MEAN PLATELET VOLUME 9.2 fl (7.4-10.4); MONOCYTES % 13.4 % (2.0-8.0); NEUTROPHILS % 51.5 % (40.0-76.0); PLATELET 186 x1000/uL (130-400); RED BLOOD CELL COUNT 3.62 mill/uL (4.7-6.1); RED CELL DISTRIBUTION WIDTH 14.6 % (11.6-14.6)
[2021-03-18 12:00] VITALS: BP 140/80
[2021-03-18] MEDS: MEROPENEM 500MG in NORMAL SALINE 50ML IV SCH ×2 (13:18→13:22)
[2021-03-18 14:31] LABS: PLATELET ESTIMATE NORMAL
[2021-03-18 16:00] VITALS: BP 132/88
[2021-03-18 20:00] VITALS: BP 145/85
[2021-03-18] MEDS: ATORVASTATIN CALCIUM 40MG TABLET PO SCH (20:28)
[2021-03-18] MEDS: ZOLPIDEM TARTRATE 5MG TABLET PO PRN (23:33)
[2021-03-19] VITALS: BP 159/82
[2021-03-19 04:00] VITALS: BP 148/89
[2021-03-19] MEDS: BLOOD SUGAR DIAGNOSTIC STRIP TEST SCH (06:33)
[2021-03-19 06:57] LABS: BASOPHILS % 0.9 % (0.0-2.0); EOSINOPHILS % 6.6 % (0.0-5.0); HEMATOCRIT. 34.7 % (42.0-52.0); HEMOGLOBIN. 11.5 g/dL (14.0-18.0); LYMPHOCYTES % 34.1 % (20.0-50.0); MEAN CORPUSCULAR HEMOGLOBIN 31.7 pg (28.0-32.0); MEAN CORPUSCULAR VOLUME 95.3 fL (80.0-94.0); MEAN PLATELET VOLUME 8.3 fl (7.4-10.4); MONOCYTES % 12.2 % (2.0-8.0); NEUTROPHILS % 46.2 % (40.0-76.0); PLATELET 185 x1000/uL (130-400); RED BLOOD CELL COUNT 3.64 mill/uL (4.7-6.1); RED CELL DISTRIBUTION WIDTH 14.5 % (11.6-14.6)
[2021-03-19] MEDS: INSULIN LISPRO 100 UNITS/ML SUBCUT SCH (07:40)
[2021-03-19] MEDS: FAMOTIDINE 20MG TABLET PO SCH (09:32)
[2021-03-19] MEDS: ASCORBIC ACID 500 MG TABLET PO SCH (09:32)
[2021-03-19] MEDS: ZINC SULFATE 220 MG ( 50 ) CAPSULE PO SCH (09:33)
[2021-03-19] MEDS: LEVETIRACETAM 500MG TABLET PO SCH (09:33)
[2021-03-19] MEDS: GUAIFENESIN/DM 600MG/30MG ER TAB 12HR PO SCH (09:33)
[2021-03-19] MEDS: SEVELAMER CARBONATE 800 MG TABLET PO SCH (09:33)
[2021-03-19] MEDS: CHOLECALCIFEROL (D3) 1000 UNIT TABLET PO SCH (09:33)
[2021-03-19] MEDS: ENOXAPARIN 30MG/0.3ML SYR SUBCUT SCH (09:34)
[2021-03-19] MEDS: ASPIRIN 325MG EC TABLET PO SCH (09:34)
[2021-03-19 10:46] VITALS: BP 150/67
[2021-03-19] MEDS ORDERED: SODIUM POLYSTYRENE SULFONATE 15 G/60 ML BOT PO SCH (13:00)
== END 2021-03-19 13:15 | disposition home or self-care (01) | DRG 871 ==
LOC: ER 05:31 → EDBEDREQSVC 07:46 → EDBEDREQ 07:46 → EDBEDREQTM 07:46 → 6WST 09:07 → EDBEDREQ 09:13 → EDBEDREQTM 09:13 → SUPCPDRO 09:57 → CANRESERV 11:30 → ENRESERV 11:30 → 6WST 03-16 23:00
PROVIDERS: ADMIT Internal Medicine; ATTEND Internal Medicine
PROC: 5A1D70Z Performance of Urinary Filtration, Intermittent, Less than 6 Hours Per Day (ICD-10-PCS; principal; 2021-03-15)
PROC: 5A1D70Z Performance of Urinary Filtration, Intermittent, Less than 6 Hours Per Day (ICD-10-PCS; 2021-03-17)
DX: A41.9 Sepsis, unspecified organism (principal); J18.9 Pneumonia, unspecified organism; N18.6 End stage renal disease; G92 Toxic encephalopathy; I13.2 Hypertensive heart and chronic kidney disease with heart failure and with stage 5 chronic kidney disease, or end stage renal disease; J44.0 Chronic obstructive pulmonary disease with (acute) lower respiratory infection; J98.11 Atelectasis; R04.2 Hemoptysis; E44.0 Moderate protein-calorie malnutrition; E87.5 Hyperkalemia; E11.22 Type 2 diabetes mellitus with diabetic chronic kidney disease; D63.8 Anemia in other chronic diseases classified elsewhere; E78.00 Pure hypercholesterolemia, unspecified; G40.909 Epilepsy, unspecified, not intractable, without status epilepticus; I25.10 Atherosclerotic heart disease of native coronary artery without angina pectoris; I50.9 Heart failure, unspecified; M19.90 Unspecified osteoarthritis, unspecified site; Z99.2 Dependence on renal dialysis; Z87.01 Personal history of pneumonia (recurrent); Z87.891 Personal history of nicotine dependence; Z86.16 Personal history of COVID-19; Z79.4 Long term (current) use of insulin; Z88.0 Allergy status to penicillin; Z68.22 Body mass index [BMI] 22.0-22.9, adult
CPT/HCPCS: 36415; 71045; 80048; 80053; 80061; 80202; 80320; 82550; 82553; 82962; 83036; 83735; 84100; 84145; 84484; 85025; 93005; 93306; 93970; 94640; 97162; 97166; 99291; J0610; J1200; J1644; J1650; J1815; J1940; J1956; J2185; J3370; J3490; J7040; J7060; G0480

== ENCOUNTER 2021-04-10 03:29 | Emergency (ER) | payer MEDICARE, OTHER ==
[~2021-04-10] VITALS: Ht 177.8 cm; Wt 91.0 kg
[2021-04-10 04:21] LABS: BASOPHILS % 1.1 % (0.0-2.0); CHLORIDE 104 mEq/L (98-107); EOSINOPHILS % 5.9 % (0.0-5.0); HEMATOCRIT. 35.1 % (42.0-52.0); HEMOGLOBIN. 11.3 g/dL (14.0-18.0); LYMPHOCYTES % 26.5 % (20.0-50.0); MEAN CORPUSCULAR HEMOGLOBIN 30.9 pg (28.0-32.0); MONOCYTES % 9.4 % (2.0-8.0); NEUTROPHILS % 57.1 % (40.0-76.0); PLATELET 231 x1000/uL (130-400); RED BLOOD CELL COUNT 3.66 mill/uL (4.7-6.1); RED CELL DISTRIBUTION WIDTH 16.5 % (11.6-14.6)
[2021-04-10 04:27] LABS: PARTIAL THROMBOPLASTIN TIME 27.6 sec (23.4-31.0); PROTHROMBIN TIME 10.6 sec (9.6-11.0)
[2021-04-10 05:29] VITALS: BP 137/81
== END 2021-04-10 05:29 | disposition home or self-care (01) ==
LOC: ER 03:29
DX: R05 Cough (principal); K92.0 Hematemesis; I13.11 Hypertensive heart and chronic kidney disease without heart failure, with stage 5 chronic kidney disease, or end stage renal disease; E11.22 Type 2 diabetes mellitus with diabetic chronic kidney disease; N18.6 End stage renal disease; N17.9 Acute kidney failure, unspecified; Z99.2 Dependence on renal dialysis; Z98.890 Other specified postprocedural states; D50.9 Iron deficiency anemia, unspecified
CPT/HCPCS: 36415; 71045; 80053; 83880; 84484; 85025; 93005; 99285

== ENCOUNTER 2021-09-25 12:33 | Inpatient (IN) | payer MEDICARE, OTHER ==
[~2021-09-25] VITALS: Ht 180.3 cm; Wt 71.3 kg
[2021-09-25] MEDS ORDERED: ONDANSETRON HCL 4MG/2ML INJ IV ONE (13:30)
[2021-09-25 14:24] LABS: EOSINOPHILS % 0.4 % (0.0-5.0); HEMOGLOBIN. 11.8 g/dL (14.0-18.0); MEAN CORPUSCULAR HEMOGLOBIN 28.8 pg (28.0-32.0); MEAN CORPUSCULAR VOLUME 90.3 fL (80.0-94.0); MEAN PLATELET VOLUME 7.3 fl (7.4-10.4); MONOCYTES % 8.1 % (2.0-8.0); NEUTROPHILS % 81.5 % (40.0-76.0); PLATELET 317 x1000/uL (130-400); RED CELL DISTRIBUTION WIDTH 17.8 % (11.6-14.6)
[2021-09-25 14:30] LABS: CHLORIDE 95 mEq/L (98-107)
[2021-09-25] MEDS ORDERED: ONDANSETRON HCL 4MG/2ML INJ IV PRN (17:00)
[2021-09-25] MEDS ORDERED: DEXTROSE 50% WATER 50ML SYRINGE IV PRN (17:00)
[2021-09-25] MEDS: AMLODIPINE 10MG TABLET PO SCH (18:25)
[2021-09-25] MEDS: ACETAMINOPHEN 325MG TABLET PO PRN ×2 (18:39→18:40)
[2021-09-25] MEDS: BLOOD SUGAR DIAGNOSTIC STRIP TEST SCH ×2 (18:41→20:17)
[2021-09-25] MEDS: DEXAMETHASONE 4MG/ML 1ML VIAL IV SCH (18:49)
[2021-09-25 20:12] LABS: T4 FREE 1.58 ng/dL (0.76-1.46)
[2021-09-25] MEDS: INSULIN LISPRO 100 UNITS/ML SUBCUT SCH ×2 (20:12→20:17)
[2021-09-25 21:10] LABS: FOLIC ACID (FOLATE) SERUM 4.9 ng/mL (>5.38)
[2021-09-25] MEDS: LEVETIRACETAM 500MG TABLET PO SCH (21:16)
[2021-09-25 22:30] VITALS: BP 157/86
[2021-09-26] VITALS (10 sets, daily range): BP systolic 139–179; BP diastolic 74–100
[2021-09-26] MEDS: BLOOD SUGAR DIAGNOSTIC STRIP TEST SCH ×3 (05:46→20:38)
[2021-09-26 06:35] LABS: BASOPHILS % 0.5 % (0.0-2.0); HEMATOCRIT. 36.2 % (42.0-52.0); HEMOGLOBIN. 11.6 g/dL (14.0-18.0); LYMPHOCYTES % 8.6 % (20.0-50.0); MEAN CORPUSCULAR HEMOGLOBIN 28.7 pg (28.0-32.0); MEAN CORPUSCULAR VOLUME 89.3 fL (80.0-94.0); MEAN PLATELET VOLUME 7.8 fl (7.4-10.4); MONOCYTES % 7.3 % (2.0-8.0); NEUTROPHILS % 83.6 % (40.0-76.0); PLATELET 301 x1000/uL (130-400); RED BLOOD CELL COUNT 4.05 mill/uL (4.7-6.1); RED CELL DISTRIBUTION WIDTH 17.9 % (11.6-14.6)
[2021-09-26] MEDS: INSULIN LISPRO 100 UNITS/ML SUBCUT SCH ×3 (07:10→20:57)
[2021-09-26] MEDS: LOSARTAN POTASSIUM 25 MG TABLET PO SCH (10:22)
[2021-09-26] MEDS: AMLODIPINE 10MG TABLET PO SCH (10:23)
[2021-09-26] MEDS: DEXAMETHASONE 4MG/ML 1ML VIAL IV SCH (10:23)
[2021-09-26] MEDS: LEVETIRACETAM 500MG TABLET PO SCH ×2 (10:23→20:55)
[2021-09-26] MEDS: ACETAMINOPHEN 325MG TABLET PO PRN ×2 (16:19→20:51)
[2021-09-26] MEDS ORDERED: CLONIDINE 0.1MG TABLET PO PRN (19:15)
[2021-09-27] VITALS (18 sets, daily range): BP systolic 119–165; BP diastolic 75–99
[2021-09-27 06:46] LABS: BASOPHILS % 0.5 % (0.0-2.0); HEMATOCRIT. 34.9 % (42.0-52.0); HEMOGLOBIN. 11.1 g/dL (14.0-18.0); LYMPHOCYTES % 8.6 % (20.0-50.0); MEAN CORPUSCULAR HEMOGLOBIN 28.5 pg (28.0-32.0); MEAN CORPUSCULAR VOLUME 89.8 fL (80.0-94.0); MEAN PLATELET VOLUME 7.9 fl (7.4-10.4); NEUTROPHILS % 82.9 % (40.0-76.0); PLATELET 321 x1000/uL (130-400); RED BLOOD CELL COUNT 3.89 mill/uL (4.7-6.1); RED CELL DISTRIBUTION WIDTH 18.2 % (11.6-14.6)
[2021-09-27] MEDS: INSULIN LISPRO 100 UNITS/ML SUBCUT SCH ×3 (08:00→21:00)
[2021-09-27] MEDS: BLOOD SUGAR DIAGNOSTIC STRIP TEST SCH ×3 (08:16→20:48)
[2021-09-27] MEDS: LEVETIRACETAM 500MG TABLET PO SCH ×2 (08:56→20:48)
[2021-09-27] MEDS: LOSARTAN POTASSIUM 25 MG TABLET PO SCH (08:57)
[2021-09-27] MEDS: AMLODIPINE 10MG TABLET PO SCH (08:57)
[2021-09-27] MEDS: DOCUSATE SODIUM 250MG CAPSULE PO SCH (14:45)
[2021-09-27] MEDS ORDERED: LACTULOSE 20G/30ML UDC PO PRN (14:45)
[2021-09-28] VITALS (9 sets, daily range): BP systolic 112–141; BP diastolic 68–82
[2021-09-28 06:27] LABS: BASOPHILS % 1.2 % (0.0-2.0); EOSINOPHILS % 1.8 % (0.0-5.0); HEMATOCRIT. 35.2 % (42.0-52.0); HEMOGLOBIN. 11.5 g/dL (14.0-18.0); LYMPHOCYTES % 14.6 % (20.0-50.0); MEAN CORPUSCULAR HEMOGLOBIN 29.3 pg (28.0-32.0); MEAN CORPUSCULAR VOLUME 89.9 fL (80.0-94.0); MEAN PLATELET VOLUME 8.1 fl (7.4-10.4); MONOCYTES % 9.9 % (2.0-8.0); NEUTROPHILS % 72.5 % (40.0-76.0); PLATELET 330 x1000/uL (130-400); RED BLOOD CELL COUNT 3.92 mill/uL (4.7-6.1); RED CELL DISTRIBUTION WIDTH 17.6 % (11.6-14.6)
[2021-09-28] MEDS: BLOOD SUGAR DIAGNOSTIC STRIP TEST SCH ×4 (07:48→21:00)
[2021-09-28] MEDS: INSULIN LISPRO 100 UNITS/ML SUBCUT SCH ×4 (07:48→21:00)
[2021-09-28] MEDS: LOSARTAN POTASSIUM 25 MG TABLET PO SCH (08:30)
[2021-09-28] MEDS: AMLODIPINE 10MG TABLET PO SCH (08:30)
[2021-09-28] MEDS: LEVETIRACETAM 500MG TABLET PO SCH ×2 (08:32→22:01)
[2021-09-28] MEDS: DOCUSATE SODIUM 250MG CAPSULE PO SCH (08:32)
[2021-09-28] MEDS: ACETAMINOPHEN 325MG TABLET PO PRN (08:33)
[2021-09-28] MEDS ORDERED: NALOXONE HCL 0.4MG/ML VIAL IV PRN (09:15)
[2021-09-28] MEDS: HYDROCODONE/ACETAMINOPHEN 10/325MG TABLET PO PRN ×3 (09:26→18:28)
[2021-09-28 12:52] LABS: INR 1.1; PARTIAL THROMBOPLASTIN TIME 28.2 sec (23.4-31.0); PROTHROMBIN TIME 11.8 sec (9.6-11.0)
[2021-09-29] VITALS (16 sets, daily range): BP systolic 120–154; BP diastolic 74–87
[2021-09-29] MEDS: INSULIN LISPRO 100 UNITS/ML SUBCUT SCH ×2 (08:00→12:16)
[2021-09-29] MEDS: BLOOD SUGAR DIAGNOSTIC STRIP TEST SCH ×2 (08:02→12:16)
[2021-09-29] MEDS ORDERED: LIDOCAINE HCL 1% 20ML VIAL (Pyxis) INJ ONE (08:39)
[2021-09-29] MEDS ORDERED: FENTANYL CITRATE/PF 50MCG/ML 2ML VIAL ONE (08:39)
[2021-09-29] MEDS ORDERED: SODIUM BICARBONATE 4% (2.4MEQ) 5ML VIAL IV ONE (08:39)
[2021-09-29] MEDS ORDERED: FENTANYL CITRATE/PF 50MCG/ML 2ML VIAL IV ONE (09:15)
[2021-09-29] MEDS: AMLODIPINE 10MG TABLET PO SCH (09:47)
[2021-09-29] MEDS: LEVETIRACETAM 500MG TABLET PO SCH (09:47)
[2021-09-29] MEDS: DOCUSATE SODIUM 250MG CAPSULE PO SCH (09:47)
[2021-09-29] MEDS: LOSARTAN POTASSIUM 25 MG TABLET PO SCH (09:48)
[2021-09-29 13:37] LABS: BASOPHILS % 1.1 % (0.0-2.0); EOSINOPHILS % 2.5 % (0.0-5.0); HEMATOCRIT. 38.5 % (42.0-52.0); HEMOGLOBIN. 12.4 g/dL (14.0-18.0); LYMPHOCYTES % 12.3 % (20.0-50.0); MEAN CORPUSCULAR HEMOGLOBIN 28.8 pg (28.0-32.0); MEAN CORPUSCULAR VOLUME 89.5 fL (80.0-94.0); MEAN PLATELET VOLUME 7.7 fl (7.4-10.4); NEUTROPHILS % 76.1 % (40.0-76.0); PLATELET 337 x1000/uL (130-400)
[2021-09-29] MEDS: HYDROCODONE/ACETAMINOPHEN 10/325MG TABLET PO PRN (17:59)
[2021-10-10 09:07] LABS: BARBITURATE SCREEN Negative ug/mL (Cutoff:0.1); BENZODIAZEPINE SCREEN Negative ng/mL (Cutoff:20); OPIATES SCREEN Negative ng/mL (Cutoff:5); PHENCYCLIDINE SCREEN Negative ng/mL (Cutoff:8)
== END 2021-09-29 18:16 | disposition hospice, home (50) | DRG 64 ==
LOC: ER 12:33 → 7EST 14:51 → EDBEDREQTM 14:56 → EDBEDREQ 14:56 → ENRESERV 20:46 → 5EST 09-26 13:22
PROVIDERS: ADMIT Specialist; ATTEND Specialist
PROC: 4A10X4Z Monitoring of Central Nervous Electrical Activity, External Approach (ICD-10-PCS; principal; 2021-09-26)
PROC: 5A1D70Z Performance of Urinary Filtration, Intermittent, Less than 6 Hours Per Day (ICD-10-PCS; 2021-09-26)
PROC: 5A1D70Z Performance of Urinary Filtration, Intermittent, Less than 6 Hours Per Day (ICD-10-PCS; 2021-09-28)
PROC: 0FB23ZX Excision of Left Lobe Liver, Percutaneous Approach, Diagnostic (ICD-10-PCS; 2021-09-29)
DX: I63.9 Cerebral infarction, unspecified (principal); N18.6 End stage renal disease; I13.2 Hypertensive heart and chronic kidney disease with heart failure and with stage 5 chronic kidney disease, or end stage renal disease; R64 Cachexia; C79.31 Secondary malignant neoplasm of brain; C78.00 Secondary malignant neoplasm of unspecified lung; C78.7 Secondary malignant neoplasm of liver and intrahepatic bile duct; C80.1 Malignant (primary) neoplasm, unspecified; D64.9 Anemia, unspecified; E11.22 Type 2 diabetes mellitus with diabetic chronic kidney disease; E78.00 Pure hypercholesterolemia, unspecified; F14.10 Cocaine abuse, uncomplicated; F17.210 Nicotine dependence, cigarettes, uncomplicated; I50.9 Heart failure, unspecified; I25.10 Atherosclerotic heart disease of native coronary artery without angina pectoris; K76.9 Liver disease, unspecified; J44.9 Chronic obstructive pulmonary disease, unspecified; R62.7 Adult failure to thrive; Z20.822 Contact with and (suspected) exposure to COVID-19; Z86.16 Personal history of COVID-19; Z99.2 Dependence on renal dialysis; Z68.21 Body mass index [BMI] 21.0-21.9, adult; Z88.0 Allergy status to penicillin; Z79.899 Other long term (current) drug therapy
CPT/HCPCS: 36415; 70551; 71045; 71250; 76942; 80048; 80053; 80061; 80307; 82378; 82607; 82746; 82962; 83036; 83735; 83880; 84439; 84443; 84481; 84484; 85025; 87426; 88307; 93005; 93306; 93880; 97116; 97162; 97530; 99291; J1100; J1815; J2405; J3010; J3490